=== PATIENT | male | born 1965 | race Caucasian/White ===

== ENCOUNTER 2022-09-27 11:05 | Inpatient (IN) ==
--- NOTE | 2022-09-27 11:58 | XRay Report ---
XR chest 1V portable CLINICAL HISTORY: Chest pain, nonspecific COMPARISON STUDY: Chest radiograph July 09, 2017. FINDINGS: Lung volumes are normal. Lungs are clear. There is no pneumothorax or pleural effusion. Mil d enlargement of the cardiac silhouette. Mediastinal contours are normal. There is no evidence for pu lmonary edema. IMPRESSION: No acute cardiopulmonary findings. ACT 112: Negative or not required by law. Electronically signed by: Tirso So M.D. 09/27/2022 11:57 AM
[2022-09-27] MEDS ORDERED: SODIUM CHLORIDE 0.9% 1000ML 1,000 ML IV ONE (12:01)
--- NOTE | 2022-09-27 12:05 | Emergency Department Note ---
Impression & Plan Saddle pulmonary embolus, Leukocytosis ED Provider Note NAME: ANAM PALOMINO AGE: 57 SEX: M : 1965 ARRIVES VIA: Walk-In INFORMANT: Patient ED PROVIDER(S): Daryl Wharton DO CHIEF COMPLAINT: chest pain and shortness of breath HPI: Patient is a 57-year-old male who presents to the ER for right leg pain as well as shortness of breath and chest pain which has been present for the past 3 days. He notes chest pain and shortness of breath are worse with exertion. Describes as a midsternal chest pain/sharp stabbing pain. Associated with shortness of breath with anything he does. Denies any belly pain, nausea, vomiting, or diarrhea. Did have surgery several weeks ago on his left biceps. Denies any dysuria, urgency, or frequency. No other exacerbating or remitting factors. Does have a previous history of superficial thrombophlebitis. No previous DVTs. No blood thinners PAST MEDICAL HISTORY:See Below PAST SURGICAL HISTORY:See Below FAMILY HISTORY:See Below SOCIAL HISTORY:See Below HOME MEDICATIONS:See Below ALLERGIES:See Below VITALS:See Below PHYSICAL EXAMINATION: GENERAL: Sitting up in bed, alert, well appearing, well nourished, no distress, non-toxic EYE EXAM: normal conjunctiva. OROPHARYNX: mucous membranes are moist LUNGS: Clear to auscultation. Normal chest wall mechanics HEART: no murmurs, S1 normal and S2 normal ABDOMEN: abdomen soft, non-tender, normo-active bowel sounds, no masses, no rebound or guarding. UPPER EXTREMITIES: upper extremities are grossly normal. LOWER EXTREMITIES: Right calf is larger than left calf NEURO EXAM: Normal sensorium, cranial nerves II-XII grossly intact, normal speech, no gross weakness of arms, no gross weakness of legs. MEDICAL DECISION MAKING: Patient is a 66-year-old male who presents ER for above-stated complaint. IV was established blood work was obtained. External records were reviewed. Labs show mild leukocytosis of 12,000. With the swelling of the leg as well as the chest pain shortness of breath patient was taking to CT. D-dimer was elevated 17,000. INR unremarkable. BMP along with LFTs bilirubin was unremarkable. Troponin was mildly elevated at 106. Lipase was normal. COVID was negative. Venous Doppler showed extensive DVT. CTA of the chest shows saddle PE. I rev iewed these images prior to radiology's capitation and call the human resources intern and get the patient heparin drip and bolus. Did discuss with Dr. Kishor Monte as well. We will hold on tPA. Patient was updated at bedside. Triage Nursing notes reviewed. Limited review of prior medical records performed Vital Signs: reviewed and remarkable for no significant abnormalities Differential diagnosis: Cardiac ischemia, aortic dissection, pulmonary embolism, pneumothorax, pneumonia, pericarditis, myocarditis, esophageal rupture, GERD, cholecystitis, pancreatitis, musculoskeletal, as well as other pathologies. ER treatment provided: See below Diagnostics interpreted by me include EKG and cardiac monitoring as listed below: -Cardiac Monitoring: An order was placed for continuous cardiac monitoring. The monitor shows a rate of 90 with sinus rhythm. -ECG: none -Laboratory studies:Interpreted by me as stated above in MDM and shown below. Imaging studies: Xrays: As interpreted by me: Portable AP upright view of the chest shows no focal infiltrate CTs show: CT angio of the chest per my read shows saddle PE Consultation(s): Discussed with human resources intern and hospitalist as described above Procedures:none Critical Care: I have personally spent 32 minutes of critical care time in the direct management of this patient. This includes bedside care, interpretation of diagnostic studies, and testing, discussion with consultants, patient, and family members, and other required patient management activities. This 32 minutes is in excess of all separately billable procedures. Past Med/Surg History Medical History Asthma mild, rarely uses inhaler Hx of blood clots superficial - right calf- ~ 1 yr ago Hypertension Idiopathic polyneuropathy Low back pain ZACKARY (obstructive sleep apnea) no device Surgical History History of esophagogastroduodenoscopy (EGD) Hx of arthroscopy of shoulder right Hx of colonoscopy Hx of wisdom tooth extraction Previous back surgery L4-L5 2009 Family History Mother Diabetes Grandfather (Paternal) Lung cancer Father Pancreatic cancer Sister Clotting disorder Brother Clotting disorder Social History Smoking Status: Former smoker Tobacco Type: Cigarettes packs per day: 1; Cigarettes Per Day: quit ~ 8 yrs ago; Second Hand Exposure: No; Do You Dip or Chew Tobacco: Yes (advised); Hx Alcohol Use: Yes Alcohol type: beer Hx Substance Use: No Preferred Language: Romansh Communication Ability: Effective Secretary [employer] Required: No Beliefs That Will Affect Care: None marital status: Current Living Situation: Spouse Feels Safe at Home: Yes during the past year weight has: remained stable Assistive Devices: Glasses Allergies Allergies Allergy/AdvReac Type Severity Reaction Status Date / Time clams Allergy Severe Vomiting Verified 09/27/22 14:33 Home Meds Home Medications Medication Instructions Recorded Confirmed albuterol sulfate 90 mcg/actuation 2 puff inhalation Q6H PRN 06/27/21 09/27/22 aerosol inhaler (Ventolin HFA) Shortness Of Breath Or Wheezing azelastine 137 mcg (0.1 %) nasal 2 spray intranasal BID PRN Allergy 06/27/21 09/27/22 spray aerosol Symptoms gabapentin 100 mg capsule 100 mg PO DAILY PRN Pain 06/27/21 09/27/22 lisinopril 20 mg tablet 20 mg PO DAILY 06/27/21 09/27/22 fluticasone propionate 50 1 spray intranasal BID PRN Allergy 08/08/22 09/27/22 mcg/actuation nasal Symptoms spray,suspension hydrochlorothiazide 25 mg tablet 25 mg PO QAM 08/08/22 09/27/22 multivitamin 1 tab PO QAM 08/08/22 09/27/22 Results & Data (ED) Vital Signs Vital Signs - 24 hr 09/27/22 11:25 09/27/22 11:51 09/27/22 12:24 Temperature 36.6 C Temperature Source Temporal Artery Scan Pulse Rate 95 H 84 Pulse Rate from SpO2 Sensor Respiratory Rate 24 Respiratory Effort / Characteristics Non-Labored Respiratory Depth Normal Respiratory Pattern Tachypnea Blood Pressure 130/79 Blood Pressure Mean 96 Blood Pressure Position Sitting Pulse Oximetry 100 100 Oxygen Delivery Method Room Air Room Air Sepsis Recent Fever Within 48 Hours No Sepsis New/Unexplained Change in Mental Status N/A Sepsis Action Taken by Nursing No Action Required 09/27/22 12:23 09/27/22 12:30 09/27/22 13:00 Temperature Temperature Source Pulse Rate 83 86 Pulse Rate from SpO2 Sensor 84 86 Respiratory Rate 16 14 Respiratory Effort / Characteristics Respiratory Depth Respiratory Pattern Blood Pressure 134/91 Blood Pressure Mean 105 Blood Pressure Position Pulse Oximetry 99 93 Oxygen Delivery Method Sepsis Recent Fever Within 48 Hours Sepsis New/Unexplained Change in Mental Status Sepsis Action Taken by Nursing 09/27/22 13:00 09/27/22 13:30 Temperature Temperature Source Pulse Rate 85 87 Pulse Rate from SpO2 Sensor 91 H Respiratory Rate 20 16 Respiratory Effort / Characteristics Respiratory Depth Respiratory Pattern Blood Pressure Blood Pressure Mean Blood Pressure Position Pulse Oximetry 99 Oxygen Delivery Method Sepsis Recent Fever Within 48 Hours Sepsis New/Unexplained Change in Mental Status Sepsis Action Taken by Nursing Laboratory Data 09/27/22 11:40 Lab Results 09/27/22 09/27/22 09/27/22 Range/Units 11:40 11:40 11:40 WBC 12.27 H (4.8-10.8) K/ul RBC 4.60 L (4.70-6.10) M/uL Hgb 14.7 (14.0-18.0) g/dl Hct 42.3 (42.0-52.0) % MCV 92.0 (80.0-100.0) fL MCH 32.0 (25.0-34.0) pg MCHC 34.8 (32.0-36.0) g/dL RDW Std Deviation 42.4 (36.4-46.3) fL RDW Coeff of Katharina 12.6 (11.5-14.5) % Plt Count 279 (130-400) K/uL MPV 9.6 (9.4-12.4) fL Immature Gran % (Auto) 0.5 % Neut % (Auto) 67.4 % Lymph % (Auto) 20.7 % [place] % (Auto) 9.1 % Eos % (Auto) 1.6 % Baso % (Auto) 0.7 % Neut # (Auto) 8.27 H (1.40-6.50) K/uL Lymph # (Auto) 2.54 (1.2-3.4) K/uL [place] # (Auto) 1.12 H (0.11-0.59) K/uL Eos # (Auto) 0.20 (0-0.50) K/uL Baso # (Auto) 0.08 (0-0.2) K/uL Immature Gran # (Auto) 0.06 (0.01-0.20) K/uL PT (9.0-12.0) Seconds INR (0.9-1.1) APTT (21.0-31.0) Seconds PTT Ratio D-Dimer 70195 H* (0-500) ug/L FEU Sodium 137 (136-145) mmol/L Potassium 3.9 (3.5-5.1) mmol/L Chloride 102 (98-107) mmol/L Carbon Dioxide 23 (21-32) mmol/L Anion Gap 12 H (3-11) BUN 16 (6-23) mg/dl Creatinine 0.95 (0.6-1.4) mg/dl Est Cr Clr Drug Dosing 123.1 ml/min Est GFR ( Amer) 103.3 ml/min Est GFR (Non-Af Amer) 89.1 ml/min BUN/Creatinine Ratio 16.8 (10-20) Glucose 97 (70-99(Fasting)) mg/dl Calcium 9.7 (8.6-10.3) mg/dl Total Bilirubin 1.2 H (0.2-1.0) mg/dl AST 32 (13-39) U/L ALT 37 (7-52) U/L Alkaline Phosphatase 101 (34-104) U/L Troponin I High Sens 106.6 H* (0-20) pg/ml Total Protein 7.9 (6.0-8.3) gm/dl Albumin 4.4 (3.4-5.0) gm/dl Globulin 3.5 (2.5-4.0) gm/dl Albumin/Globulin Ratio 1.3 (0.9-2) Lipase 20 (11-82) U/L 09/27/22 Range/Units 13:06 WBC (4.8-10.8) K/ul RBC (4.70-6.10) M/uL Hgb (14.0-18.0) g/dl Hct (42.0-52.0) % MCV (80.0-100.0) fL MCH (25.0-34.0) pg MCHC (32.0-36.0) g/dL RDW Std Deviation (36.4-46.3) fL RDW Coeff of Katharina (11.5-14.5) % Plt Count (130-400) K/uL MPV (9.4-12.4) fL Immature Gran % (Auto) % Neut % (Auto) % Lymph % (Auto) % [place] % (Auto) % Eos % (Auto) % Baso % (Auto) % Neut # (Auto) (1.40-6.50) K/uL Lymph # (Auto) (1.2-3.4) K/uL [place] # (Auto) (0.11-0.59) K/uL Eos # (Auto) (0-0.50) K/uL Baso # (Auto) (0-0.2) K/uL Immature Gran # (Auto) (0.01-0.20) K/uL PT 12.1 H (9.0-12.0) Seconds INR 1.1 (0.9-1.1) APTT 24.7 (21.0-31.0) Seconds PTT Ratio 0.9 D-Dimer (0-500) ug/L FEU Sodium (136-145) mmol/L Potassium (3.5-5.1) mmol/L Chloride (98-107) mmol/L Carbon Dioxide (21-32) mmol/L Anion Gap (3-11) BUN (6-23) mg/dl Creatinine (0.6-1.4) mg/dl Est Cr Clr Drug Dosing ml/min Est GFR ( Amer) ml/min Est GFR (Non-Af Amer) ml/min BUN/Creatinine Ratio (10-20) Glucose (70-99(Fasting)) mg/dl Calcium (8.6-10.3) mg/dl Total Bilirubin (0.2-1.0) mg/dl AST (13-39) U/L ALT (7-52) U/L Alkaline Phosphatase (34-104) U/L Troponin I High Sens (0-20) pg/ml Total Protein (6.0-8.3) gm/dl Albumin (3.4-5.0) gm/dl Globulin (2.5-4.0) gm/dl Albumin/Globulin Ratio (0.9-2) Lipase (11-82) U/L Administered Medications Heparin Sodium/Dextrose (Heparin Sodium/Dextrose) 25,000 units in 500 mls @ 36 mls/hr IV .[id number] [facility]; Protocol Stop: 10/27/22 13:14 Last Admin: 09/27/22 13:08 Dose: 1,800 units/hr, 36 mls/hr Documented By: FRANKY Co-signed By: AMEE Discontinued Medications Heparin Sodium (Porcine) (Heparin Sod (Porcine) 1000 Unit/Ml) 8,000 units IV NOW ONE Stop: 09/27/22 13:10 Last Admin: 09/27/22 13:08 Dose: 6,000 units Documented By: FRANKY Co-signed By: AMEE Ioversol (Optiray 320 500ml) 120 ml IV ONCE ONE Stop: 09/27/22 12:49 Last Admin: 09/27/22 12:49 Dose: 120 ml Documented By: KUSHAL Imaging Data Radiologist's Impression: Chest X-Ray 09/27/22 11:33 XR chest 1V portable CLINICAL HISTORY: Chest pain, nonspecific COMPARISON STUDY: Chest radiograph July 09, 2017. FINDINGS: Lung volumes are normal. Lungs are clear. There is no pneumothorax or pleural effusion. Mild enlargement of the cardiac silhouette. Mediastinal contours are normal. There is no evidence for pulmonary edema. IMPRESSION: No acute cardiopulmonary findings. ACT 112: Negative or not required by law. Electronically signed by: Tirso So M.D. 09/27/2022 11:57 AM Chest CTA 09/27/22 12:01 CT ANGIOGRAM OF THE CHEST CLINICAL HISTORY: Atypical chest pain. COMPARISON STUDY: Chest x-ray dated 09/27/2022. TECHNIQUE: Following the IV administration of 120 cc of Optiray 320, CT angiogram of the chest was performed from the upper abdomen to the thoracic inlet utilizing the pulmonary embolus protocol. Images are reviewed in the axial, sagittal, and coronal planes. 3-D MIPS images are created and assessed. IV contrast was administered without complication. A dose lowering technique was utilized adhering to the principles of ALARA. The examination is degraded by streak artifact from the left arm which could not be elevated above the chest. CT DOSE: 566.96 mGycm FINDINGS: Thyroid: Imaged portions of the thyroid gland are normal in size and a ttenuation. Thoracic aorta: There is moderate atherosclerotic calcification of the thoracic aorta, which is normal in caliber and demonstrates standard 3-vessel arch anatomy. No dissection is seen. Pulmonary vasculature: The pulmonary trunk is normal in caliber. There is extensive bilateral pulmonary embolus. There is a saddle pulmonary embolus, with thrombus within the distal right and left main pulmonary arteries. Thrombus extends into the left upper lobe, left lower lobe, and lingular pulmonary arteries into segmental and subsegmental branches. Thrombus extends into the right upper and right lower lobe pulmonary arteries into segmental and subsegmental branches. There is also segmental and subsegmental thrombus within the right middle lobe pulmonary artery. Heart: The heart is normal in size and without pericardial effusion. There are coronary artery calcifications. Lungs and pleural spaces: There is no airspace consolidation or pleural effusion. Scattered foci of parenchymal scarring are seen throughout both lungs. The trachea and central airways are clear. Mediastinum: Mildly enlarged mediastinal lymph nodes measure up to 12 mm in short axis. Shantal: Clear. Axillae: There is no axillary lymphadenopathy. Upper abdomen: Partially visualized upper abdominal viscera is within normal limits. Skeletal structures: No lytic or blastic bony lesions are seen. Postsurgical changes noted in the left shoulder. IMPRESSION: 1. Saddle pulmonary embolus with extensive bilateral pulmonary emboli as above. 2. The lungs are clear. 3. Additional findings as above. ACT 112: Negative or not required by law. Electronically signed by: Mode Diaz M.D. 09/27/2022 1:10 PM Venous Doppler Study 09/27/22 12:01 RIGHT LOWER EXTREMITY VENOUS DOPPLER CLINICAL HISTORY: ? dvt. Pulmonary emboli. COMPARISON STUDY: No previous studies for comparison. TECHNIQUE: Sonography of the deep venous system of the right lower extremity was performed. Compression and augmentation were evaluated. FINDINGS: Note is made of deep venous thrombus within the right femoral, popliteal, posterior tibial and peroneal veins. This thrombus is acute appearing. There is also superficial thrombus within a superficial varicosity. IMPRESSION: Deep venous thrombus within the right lower extremity, as described above. ACT 112: Negative or not required by law. Electronically signed by: Tirso So M.D. 09/27/2022 1:52 PM Discharge Plan Visit Data Chief Complaint: Referred by Doctor Stated Complaint: POSSIBLE BLOOD CLOTS IN CHEST AND LEGS ED Provider: Daryl Wharton Discharge Problem: Saddle pulmonary embolus, Leukocytosis Patient Disposition: Admitted As Inpatient Discharge Instructions Interventions: ED Discharge Assessment Last Done: 09/27/22 15:15
[2022-09-27 12:14] LABS: Basophils # (auto) 0.08 K/uL (0-0.2); Basophils % (auto) 0.7 %; Eosinophils % (auto) 1.6 %; Hematocrit (blood only) 42.3 % (42.0-52.0); Hemoglobin 14.7 g/dl (14.0-18.0); Immature Granulocytes # (auto) 0.06 K/uL (0.01-0.20); Immature Granulocytes % (auto) 0.5 %; Lymphocytes # (auto) 2.54 K/uL (1.2-3.4); Lymphocytes % (auto) 20.7 %; Mean Corpuscular Hgb Conc 34.8 g/dL (32.0-36.0); Mean Platelet Volume 9.6 fL (9.4-12.4); Monocytes # (auto) 1.12 K/uL (0.11-0.59); Monocytes % (auto) 9.1 %; Neutrophils # (auto) 8.27 K/uL (1.40-6.50); Neutrophils % (auto) 67.4 %; Platelet Count 279 K/uL (130-400); RDW Coefficient of Variation 12.6 % (11.5-14.5); RDW Standard Deviation 42.4 fL (36.4-46.3); White Blood Count 12.27 K/ul (4.8-10.8)
[2022-09-27 12:31] LABS: Albumin Globulin Ratio 1.3 (0.9-2); Albumin Level 4.4 gm/dl (3.4-5.0); BUN Creatinine Ratio 16.8 (10-20); Bilirubin,Total 1.2 mg/dl (0.2-1.0); Calcium 9.7 mg/dl (8.6-10.3); Creatinine Clr Calc Pharmacy 123.1 ml/min; Est GFR (African American) 103.3 ml/min; Est GFR (Non-African American) 89.1 ml/min; Globulin 3.5 gm/dl (2.5-4.0); Potassium 3.9 mmol/L (3.5-5.1); Total Protein 7.9 gm/dl (6.0-8.3)
[2022-09-27 12:48] LABS: Troponin I High Sensitivity 106.6 pg/ml (0-20)
[2022-09-27] MEDS ORDERED: OPTIRAY 320 500ml IV ONE (12:48)
[2022-09-27] MEDS ORDERED: Heparin IV Adult Wt-Based Standard WITH Bolus Protocol IV STA (12:54)
[2022-09-27] MEDS: HEPARIN SODIUM/DEXTROSE 25,000 UNITS/500 ML BAG IV SCH (13:08)
[2022-09-27] MEDS ORDERED: HEPARIN SOD (PORCINE) 1000 UNIT/ML IV ONE ×2 (13:09)
--- NOTE | 2022-09-27 13:11 | CT Scan Report ---
CT ANGIOGRAM OF THE CHEST CLINICAL HISTORY: Atypical chest pain. COMPARISON STUDY: Chest x-ray dated 09/27/2022. TECHNIQUE: Following the IV administration of 120 cc of Optiray 320, CT angiogram of the chest was pe rformed from the upper abdomen to the thoracic inlet utilizing the pulmonary embolus protocol. Images are reviewed in the axial, sagittal, and coronal planes. 3-D MIPS images are created and assessed. I V contrast was administered without complication. A dose lowering technique was utilized adhering to the principles of ALARA. The examination is degraded by streak artifact from the left arm which coul d not be elevated above the chest. CT DOSE: 566.96 mGycm FINDINGS: Thyroid: Imaged portions of the thyroid gland are normal in size and attenuation. Thoracic aorta: There is moderate atherosclerotic calcification of the thoracic aorta, which is mario alberto l in caliber and demonstrates standard 3-vessel arch anatomy. No dissection is seen. Pulmonary vasculature: The pulmonary trunk is normal in caliber. There is extensive bilateral pulmona ry embolus. There is a saddle pulmonary embolus, with thrombus within the distal right and left main pulmonary arteries. Thrombus extends into the left upper lobe, left lower lobe, and lingular pulmonar y arteries into segmental and subsegmental branches. Thrombus extends into the right upper and right lower lobe pulmonary arteries into segmental and subsegmental branches. There is also segmental and s ubsegmental thrombus within the right middle lobe pulmonary artery. Heart: The heart is normal in size and without pericardial effusion. There are coronary artery calcif ications. Lungs and pleural spaces: There is no airspace consolidation or pleural effusion. Scattered foci of p arenchymal scarring are seen throughout both lungs. The trachea and central airways are clear. Mediastinum: Mildly enlarged mediastinal lymph nodes measure up to 12 mm in short axis. Shantal: Clear. Axillae: There is no axillary lymphadenopathy. Upper abdomen: Partially visualized upper abdominal viscera is within normal limits. Skeletal structures: No lytic or blastic bony lesions are seen. Postsurgical changes noted in the lef t shoulder. IMPRESSION: 1. Saddle pulmonary embolus with extensive bilateral pulmonary emboli as above. 2. The lungs are clear. 3. Additional findings as above. ACT 112: Negative or not required by law. Electronically signed by: Mode Diaz M.D. 09/27/2022 1:10 PM
--- NOTE | 2022-09-27 13:22 | History & Physical Report ---
Date of Service September 27, 2022 Assessment & Plan (1) Saddle pulmonary embolus: Plan: Discussed with stamping press operator and currently since the patient is hemodynamically stable without end organ symptoms will just treat with heparin IV already started in the ER. PESI score 66 - low risk Bed rest US right lower extremity TTE Would consider lifelong treatment given prothrombin gene mutation and strong family history (2) ZACKARY (obstructive sleep apnea): Plan: Has not worn CPAP for 2 years due to his machine being broken. CPAP HS. Hold if hypotensive. (3) Hypertension: Plan: Hold HCTZ and lisinopril depending on hemodynamic stability (4) Idiopathic polyneuropathy: Plan: Continue gabapentin PRN Plan VTE Prophylaxis - IV heparin Diet - regular Disposition - admit to PCU Admission and Anticipated Discharge Date Admission Date: September 27, 2022 History of Present Illness Chief Complaint: Shortness of breath, right leg pain Primary Care Provider: Karina Nascimento MD Anam Schultz is a 57 year old male who presents to the ER with right leg pain and shortness of breath. He reports initial symptoms of chest tightness of exertion with shortness of breath on exertion started on Sunday (3 days previously). The following day he started having right thigh and calf pain. In the ER he underwent CT for PE showing a saddle embolus. He recently underwent left shoulder arthroplasty on August 14 with post operative course of aspirin for VTE prophylaxis. No recent long haul car/plane journeys. He reports have a superficial right lower extremity thrombus treated with conservative measures approximately 2 years ago. 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 No previous personal deep vein thrombosis. Allergies Allergy/AdvReac Type Severity Reaction Status Date / Time clams Allergy Severe Vomiting Verified 09/27/22 14:33 Home Medications Medication Instructions Recorded Confirmed Type albuterol sulfate 90 mcg/actuation 2 puff inhalation Q6H PRN 06/27/21 09/27/22 History aerosol inhaler (Ventolin HFA) Shortness Of Breath Or Wheezing azelastine 137 mcg (0.1 %) nasal 2 spray intranasal BID PRN Allergy 06/27/21 09/27/22 History spray aerosol Symptoms gabapentin 100 mg capsule 100 mg PO DAILY PRN Pain 06/27/21 09/27/22 History lisinopril 20 mg tablet 20 mg PO DAILY 06/27/21 09/27/22 History fluticasone propionate 50 1 spray intranasal BID PRN Allergy 08/08/22 09/27/22 History mcg/actuation nasal Symptoms spray,suspension hydrochlorothiazide 25 mg tablet 25 mg PO QAM 08/08/22 09/27/22 History multivitamin 1 tab PO QAM 08/08/22 09/27/22 History Past Med/Surg History Medical History (Updated 09/27/22 @ 22:58 by Kishor Monte MD) Asthma mild, rarely uses inhaler Hx of blood clots superficial - right calf- ~ 1 yr ago Hypertension Idiopathic polyneuropathy Low back pain ZACKARY (obstructive sleep apnea) no device 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 Surgical History History of esophagogastroduodenoscopy (EGD) Hx of arthroscopy of shoulder right Hx of colonoscopy Hx of wisdom tooth extraction Previous back surgery L4-L5 2009 Family History Mother Diabetes Grandfather (Paternal) Lung cancer Father Pancreatic cancer Sister Clotting disorder Brother Clotting disorder Social History Smoking Status: Former smoker Tobacco Type: Cigarettes packs per day: 1; Cigarettes Per Day: quit ~ 8 yrs ago; Second Hand Exposure: No; Do You Dip or Chew Tobacco: Yes (advised); Hx Alcohol Use: Yes Alcohol type: beer Hx Substance Use: No Preferred Language: Dominican Communication Ability: Effective Tool Coordinator Required: No Beliefs That Will Affect Care: None marital status: Current Living Situation: Spouse Feels Safe at Home: Yes during the past year weight has: remained stable Assistive Devices: Glasses Review of Systems Review of Systems: All systems reviewed & are unremarkable except as noted in HPI & below Physical Exam Constitutional: WD/WN, vitals as above Eyes: + anicteric sclerae; normal pupil size ENMT: external ear and nose normal, oropharynx normal Neck: trachea midline, no thyromegaly Respiratory: normal respiratory effort; no respiratory distress Auscultation: lungs clear to auscultation bilaterally; breath sounds present, no diminished lung sounds, no crackles and no rales Cardiovascular: RRR, no murmur, no edema Extremities: normal capillary refill and + calf tenderness (right); no pedal edema Gastrointestinal (Abdomen): normal bowel sounds, soft, nontender, no hepatosplenomegaly Musculoskeletal: no cyanosis or clubbing, extremities motor strength 5/5 Skin: no rashes, warm and dry Neurologic: moves all extremities and awake; not confused Psychiatric: A+Ox3, euthymic affect Results & Data Results & Data Vital Signs (Past 12 Hours) Vital Signs Temp Pulse Resp BP Pulse Ox O2 Del Method 09/27/22 12:24 84 09/27/22 11:51 100 Room Air 09/27/22 11:25 36.6 C 95 H 24 130/79 100 Room Air Laboratory Results Abnormal lab results 09/27/22 09/27/22 09/27/22 Range/Units 11:40 11:40 11:40 WBC 12.27 H (4.8-10.8) K/ul RBC 4.60 L (4.70-6.10) M/uL Neut # (Auto) 8.27 H (1.40-6.50) K/uL Tillman # (Auto) 1.12 H (0.11-0.59) K/uL D-Dimer 07042 H* (0-500) ug/L FEU Anion Gap 12 H (3-11) Total Bilirubin 1.2 H (0.2-1.0) mg/dl Troponin I High Sens 106.6 H* (0-20) pg/ml Diagnostic Findings XR chest 1V portable CLINICAL HISTORY: Chest pain, nonspecific COMPARISON STUDY: Chest radiograph July 09, 2017. FINDINGS: Lung volumes are normal. Lungs are clear. There is no pneumothorax or pleural effusion. Mild enlargement of the cardiac silhouette. Mediastinal contours are normal. There is no evidence for pulmonary edema. IMPRESSION: No acute cardiopulmonary findings. CT ANGIOGRAM OF THE CHEST CLINICAL HISTORY: Atypical chest pain. COMPARISON STUDY: Chest x-ray dated 09/27/2022. TECHNIQUE: Following the IV administration of 120 cc of Optiray 320, CT angiogram of the chest was performed from the upper abdomen to the thoracic inlet utilizing the pulmonary embolus protocol. Images are reviewed in the axial, sagittal, and coronal planes. 3-D MIPS images are created and assessed. IV contrast was administered without complication. A dose lowering technique was utilized adhering to the principles of ALARA. The examination is degraded by streak artifact from the left arm which could not be elevated above the chest. CT DOSE: 566.96 mGycm FINDINGS: Thyroid: Imaged portions of the thyroid gland are normal in size and attenuation. Thoracic aorta: There is moderate atherosclerotic calcification of the thoracic aorta, which is normal in caliber and demonstrates standard 3-vessel arch anatomy. No dissection is seen. Pulmonary vasculature: The pulmonary trunk is normal in caliber. There is extensive bilateral pulmonary embolus. There is a saddle pulmonary embolus, with thrombus within the distal right and left main pulmonary arteries. Thrombus extends into the left upper lobe, left lower lobe, and lingular pulmonary arteries into segmental and subsegmental branches. Thrombus extends into the right upper and right lower lobe pulmonary arteries into segmental and subsegmental branches. There is also segmental and subsegmental thrombus within the right middle lobe pulmonary artery. Heart: The heart is normal in size and without pericardial effusion. There are coronary artery calcifications. Lungs and pleural spaces: There is no airspace consolidation or pleural effusion. Scattered foci of parenchymal scarring are seen throughout both lungs. The trachea and central airways are clear. Mediastinum: Mildly enlarged mediastinal lymph nodes measure up to 12 mm in short axis. Shantal: Clear. Axillae: There is no axillary lymphadenopathy. Upper abdomen: Partially visualized upper abdominal viscera is within normal limits. Skeletal structures: No lytic or blastic bony lesions are seen. Postsurgical changes noted in the left shoulder. IMPRESSION: 1. Saddle pulmonary embolus with extensive bilateral pulmonary emboli as above. 2. The lungs are clear. 3. Additional findings as above. Medications Administered ER Medications Given: Heparin standard IV dose with bolus ECG Rate (beats per minute): 88 Rhythm: normal sinus Findings: + nonspecific-ST abn Comparison ECG Date: from (August 04, 2022) Change: no significant change Code Status & VTE Plan Code Status Full VTE Prophylaxis Plan VTE Prophylaxis will be ordered: Yes PG Care Time/CCT Total # of Minutes Spent Total Time Spent with Patient: Total time spent is greater than 50% in coordination of care (as documented) at patient's floor/unit and/or counseling patient: Coding Level of Care Code 99593 INT INP/OBS CARE 3/75MIN Diagnoses Saddle pulmonary embolus I26.92 ZACKARY (obstructive sleep apnea) G47.33 Hypertension I10 Idiopathic polyneuropathy G60.9
[2022-09-27 13:28] LABS: D Dimer 16930 ug/L FEU (0-500)
--- NOTE | 2022-09-27 13:47 | Critical Care Consultation ---
Date of Consultation September 27, 2022 Assessment & Plan (1) Saddle pulmonary embolus: Reason Critically Ill: 57-year-old male with newly diagnosed saddle pulmonary embolism PLAN: Neuro: Idiopathic polyneuropathy by EMG 05/25/2021 Resp: Pulmonary embolism without cor pulmonale -I suspect the pulmonary embolism has been gradually building, there is no signs of extremis, his PESI score is 66, class II low risk. I believe risks of thrombolytics outweigh benefits. His troponins are very mildly eleva claudia. With such clot burden if this was very abrupt onset I do not believe his heart would be able to accommodate the VQ mismatch and change in hemodynamics. Therefore I also think thrombolytics will be less effective at decreasing colonic clot burden which is body already appears to be tolerating and accommodating. CV: Elevated troponin secondary to pulmonary embolism Hypertension -Patient reports he did take his antihypertensives today and his blood pressure is good, no indication of relative hypotension and history of essential hypertension Heme: Prothrombin gene mutation -Will require course of anticoagulants, we briefly discussed possible need for lifelong anticoagulation DVT prophylaxis: Heparin infusion Vascular access: Peripheral IVs Code Status: Full code Disposition: PCU with hospitalist medicine (2) Prothrombin [id number] mutation: (3) ZACKARY (obstructive sleep apnea): (4) Idiopathic polyneuropathy: (5) Hypertension: Supervising Physician Co-Signing Physician Notes I have personally spent 65 minutes of critical care time in the direct management of this patient. This includes time spent evaluating patient, direct bedside discussion/consultation, chart review, interpretation of diagnostic studies, discussion with consultants, patient, and regarding treatment decisions, as well as other required patient management activities. History of Present Illness Reason for Consultation: Saddle pulmonary embolus Requesting Physician: Kishor Monte MD Attending Physician: Kishor Monte MD History of Present Illness Patient is a 57-year-old male who is 6 weeks out from a shoulder arthroscopic surgery who has a known prothrombin mutation who completed his post surgical DVT prophylaxis who presented to the emergency department today for right leg pain as well as some chest pain for the last 3 days. He does admit to shortness of breath with exertion. He does not have a prior history of DVT nor PE, he reports he has had superficial thrombophlebitis in the past. He has a known prothrombin mutation secondary to a brother and sister both been diagnosed with pulmonary embolism and subsequently discovered their prothrombin mutations so the patient was evaluated as an outpatient. Been asked to weigh in regarding clot burden and need for thrombolytics. Allergies Allergy/AdvReac Type Severity Reaction Status Date / Time clams Allergy Severe Vomiting Verified 09/27/22 14:33 Home Medications Medication Instructions Recorded Confirmed Type albuterol sulfate 90 mcg/actuation 2 puff inhalation Q6H PRN 06/27/21 08/14/22 History aerosol inhaler (Ventolin HFA) Shortness Of Breath Or Wheezing azelastine 137 mcg (0.1 %) nasal 2 spray intranasal BID PRN Allergy 06/27/21 08/14/22 History spray aerosol Symptoms gabapentin 100 mg capsule 100 mg PO DAILY PRN Pain 06/27/21 08/14/22 History lisinopril 20 mg tablet 20 mg PO DAILY 06/27/21 08/14/22 History fluticasone propionate 50 1 spray intranasal BID PRN Allergy 08/08/22 08/14/22 History mcg/actuation nasal Symptoms spray,suspension hydrochlorothiazide 25 mg tablet 25 mg PO QAM 08/08/22 08/14/22 History multivitamin 1 tab PO QAM 08/08/22 08/14/22 History Patient History Medical History Asthma mild, rarely uses inhaler Hx of blood clots superficial - right calf- ~ 1 yr ago Hypertension Idiopathic polyneuropathy Low back pain ZACKARY (obstructive sleep apnea) no device Surgical History History of esophagogastroduodenoscopy (EGD) Hx of arthroscopy of shoulder right Hx of colonoscopy Hx of wisdom tooth extraction Previous back surgery L4-L5 2009 Family History Mother Diabetes Grandfather (Paternal) Lung cancer Father Pancreatic cancer Sister Clotting disorder Brother Clotting disorder Social History Smoking Status: Former smoker Tobacco Type: Cigarettes packs per day: 1; Cigarettes Per Day: quit ~ 8 yrs ago; Second Hand Exposure: No; Do You Dip or Chew Tobacco: Yes (advised); Hx Alcohol Use: Yes Alcohol type: beer Hx Substance Use: No Preferred Language: Moroccan Communication Ability: Effective Housecalls Nurse Required: No Beliefs That Will Affect Care: None marital status: Current Living Situation: Spouse Feels Safe at Home: Yes during the past year weight has: remained stable Assistive Devices: Glasses Review of Systems Review of Systems: As per the HPI All other review of systems are otherwise negative Physical Exam Physical Exam: General: Alert. nontoxic. Skin: Warm, dry, Head: Atraumatic Ears, nose, mouth and throat: airway patent Cardiovascular: Normal peripheral perfusion Respiratory: no respiratory distress Gastrointestinal: Non distended Musculoskeletal: No deformity Results & Data Results & Data Vital Signs (Past 12 Hours) Vital Signs Temp Pulse Resp BP Pulse Ox O2 Del Method 09/27/22 12:24 84 09/27/22 11:51 100 Room Air 09/27/22 11:25 36.6 C 95 H 24 130/79 100 Room Air Critical Care Results & Data Vital Signs (Past 12 Hours) Vital Signs Temp Pulse Resp BP Pulse Ox O2 Del Method 09/27/22 13:30 87 16 09/27/22 13:00 85 20 99 09/27/22 13:00 134/91 09/27/22 12:30 86 14 93 09/27/22 12:23 83 16 99 09/27/22 12:24 84 09/27/22 11:51 100 Room Air 09/27/22 11:25 36.6 C 95 H 24 130/79 100 Room Air Lab & Micro Results (Past 24 Hours) RBC 4.60 M/uL (4.70-6.10) L 09/27/22 WBC 12.27 K/ul (4.8-10.8) H 09/27/22 Hgb 14.7 g/dl (14.0-18.0) 09/27/22 Hct 42.3 % (42.0-52.0) 09/27/22 MCV 92.0 fL (80.0-100.0) 09/27/22 MCH 32.0 pg (25.0-34.0) 09/27/22 MCHC 34.8 g/dL (32.0-36.0) 09/27/22 RDW Standard Deviation 42.4 fL (36.4-46.3) 09/27/22 RDW Coefficient of Variation 12.6 % (11.5-14.5) 09/27/22 Plt Count 279 K/uL (130-400) 09/27/22 MPV 9.6 fL (9.4-12.4) 09/27/22 Neutrophils (%) (Auto) 67.4 % 09/27/22 Lymphocytes (%) (Auto) 20.7 % 09/27/22 Monocytes # (Auto) 1.12 K/uL (0.11-0.59) H 09/27/22 Eosinophils # (Auto) 0.20 K/uL (0-0.50) 09/27/22 Immature Granulocyte % (Auto) 0.5 % 09/27/22 Neutrophils # (Auto) 8.27 K/uL (1.40-6.50) H 09/27/22 Lymphocytes # (Auto) 2.54 K/uL (1.2-3.4) 09/27/22 Monocytes # (Auto) 1.12 K/uL (0.11-0.59) H 09/27/22 Eosinophils # (Auto) 0.20 K/uL (0-0.50) 09/27/22 Basophils # (Auto) 0.08 K/uL (0-0.2) 09/27/22 Immature Granulocyte # (Auto) 0.06 K/uL (0.01-0.20) 3 Na 137 mmol/L (136-145) 09/27/22 K 3.9 mmol/L (3.5-5.1) 09/27/22 Cl 102 mmol/L (98-107) 09/27/22 CO2 23 mmol/L (21-32) 09/27/22 Anion Gap 12 (3-11) H 09/27/22 BUN 16 mg/dl (6-23) 09/27/22 Creatinine 0.95 mg/dl (0.6-1.4) 09/27/22 Estimated GFR ( Amer) 103.3 ml/min 09/27/22 Estimated GFR (Non-Af Amer) 89.1 ml/min 09/27/22 BUN/Creatinine Ratio 16.8 (10-20) 09/27/22 Glu 97 mg/dl (70-99(Fasting)) 09/27/22 Ca 9.7 mg/dl (8.6-10.3) 09/27/22 Total Bilirubin 1.2 mg/dl (0.2-1.0) H 09/27/22 AST 32 U/L (13-39) 09/27/22 ALT 37 U/L (7-52) 09/27/22 Alkaline Phosphatase 101 U/L (34-104) 09/27/22 TP 7.9 gm/dl (6.0-8.3) 09/27/22 Albumin 4.4 gm/dl (3.4-5.0) 09/27/22 Globulin 3.5 gm/dl (2.5-4.0) 09/27/22 Albumin/Globulin Ratio 1.3 (0.9-2) 09/27/22 Calcium Level 9.7 mg/dl (8.6-10.3) 09/27/22 11:40 Prothromb Time International Ratio 1.1 (0.9-1.1) 09/27/22 13:0 6 Diagnostic Findings (Past 24 Hours) Chest X-Ray 09/27/22 11:33 XR chest 1V portable CLINICAL HISTORY: Chest pain, nonspecific COMPARISON STUDY: Chest radiograph July 09, 2017. FINDINGS: Lung volumes are normal. Lungs are clear. There is no pneumothorax or pleural effusion. Mild enlargement of the cardiac silhouette. Mediastinal c ontours are normal. There is no evidence for pulmonary edema. IMPRESSION: No acute cardiopulmonary findings. ACT 112: Negative or not required by law. Electronically signed by: Tirso So M.D. 09/27/2022 11:57 AM Chest CTA 09/27/22 12:01 CT ANGIOGRAM OF THE CHEST CLINICAL HISTORY: Atypical chest pain. COMPARISON STUDY: Chest x-ray dated 09/27/2022. TECHNIQUE: Following the IV administration of 120 cc of Optiray 320, CT angiogram of the chest was performed from the upper abdomen to the thoracic inlet utilizing the pulmonary embolus protocol. Images are reviewed in the axial, sagittal, and coronal planes. 3-D MIPS images are created and assessed. IV contrast was administered without complication. A dose lowering technique was utilized adhering to the principles of ALARA. The examination is degraded by streak artifact from the left arm which could not be elevated above the chest. CT DOSE: 566.96 mGycm FINDINGS: Thyroid: Imaged portions of the thyroid gland are normal in size and attenuation. Thoracic aorta: There is moderate atherosclerotic calcification of the thoracic aorta, which is normal in caliber and demonstrates standard 3-vessel arch anatomy. No dissection is seen. Pulmonary vasculature: The pulmonary trunk is normal in caliber. There is extensive bilateral pulmonary embolus. There is a saddle pulmonary embolus, with thrombus within the distal right and left main pulmonary arteries. Thrombus extends into the left upper lobe, left lower lobe, and lingular pulmonary arteries into segmental and subsegmental branches. Thrombus extends into the right upper and right lower lobe pulmonary arteries into segmental and subsegmental branches. There is also segmental and subsegmental thrombus within the right middle lobe pulmonary artery. Heart: The heart is normal in size and without pericardial effusion. There are coronary artery calcifications. Lungs and pleural spaces: There is no airspace consolidation or pleural ef fusion. Scattered foci of parenchymal scarring are seen throughout both lungs. The trachea and central airways are clear. Mediastinum: Mildly enlarged mediastinal lymph nodes measure up to 12 mm in short axis. Shantal: Clear. Axillae: There is no axillary lymphadenopathy. Upper abdomen: Partially visualized upper abdominal viscera is within normal limits. Skeletal structures: No lytic or blastic bony lesions are seen. Postsurgical changes noted in the left shoulder. IMPRESSION: 1. Saddle pulmonary embolus with extensive bilateral pulmonary emboli as above. 2. The lungs are clear. 3. Additional findings as above. ACT 112: Negative or not required by law. Electronically signed by: Mode Diaz M.D. 09/27/2022 1:10 PM Venous Doppler Study 09/27/22 12:01 RIGHT LOWER EXTREMITY VENOUS DOPPLER CLINICAL HISTORY: ? dvt. Pulmonary emboli. COMPARISON STUDY: No previous studies for comparison. TECHNIQUE: Sonography of the deep venous system of the right lower extremity was performed. Compression and augmentation were evaluated. FINDINGS: Note is made of deep venous thrombus within the right femoral, popliteal, posterior tibial and peroneal veins. This thrombus is acute appearing. There is also superficial thrombus within a superficial varicosity. IMPRESSION: Deep venous thrombus within the right lower extremity, as described above. ACT 112: Negative or not required by law. Electronically signed by: Tirso So M.D. 09/27/2022 1:52 PM RT Ventilator Mngmt (Last Documented) Ventilator Ordered Settings Respiratory Rate 16 09/27/22 13:30 Ventilator - PT Measurements Respiratory Rate 16 Coding Level of Care Code 89647 IN/OBS CONSULT LVL 5,80M Diagnoses Saddle pulmonary embolus I26.92 Acute cor pulmonale presence: without acute cor pulmonale Chronicity: unspecified Prothrombin [id number] mutation D68.52 ZACKARY (obstructive sleep apnea) G47.33 Idiopathic polyneuropathy G60.9 Hypertension I10 Time Spent (min) 65 (1) Saddle pulmonary embolus Acute cor pulmonale presence: without acute cor pulmonale Chronicity: unspecified Qualified Code(s): I26.92 - Saddle embolus of pulmonary artery without acute cor pulmonale
--- NOTE | 2022-09-27 13:54 | Ultrasound Report ---
RIGHT LOWER EXTREMITY VENOUS DOPPLER CLINICAL HISTORY: ? dvt. Pulmonary emboli. COMPARISON STUDY: No previous studies for comparison. TECHNIQUE: Sonography of the deep venous system of the right lower extremity was performed. Compress ion and augmentation were evaluated. FINDINGS: Note is made of deep venous thrombus within the right femoral, popliteal, posterior tibial and peroneal veins. This thrombus is acute appearing. There is also superficial thrombus within a vasquez perficial varicosity. IMPRESSION: Deep venous thrombus within the right lower extremity, as described above. ACT 112: Negative or not required by law. Electronically signed by: Tirso So M.D. 09/27/2022 1:52 PM
[2022-09-27 14:04] LABS: INR 1.1 (0.9-1.1); Partial Thromboplastin Ratio 0.9; Partial Thromboplastin Time 24.7 Seconds (21.0-31.0); Prothrombin Time 12.1 Seconds (9.0-12.0)
--- NOTE | 2022-09-27 14:12 | Electrocardiogram Report ---
Test Reason : Blood Pressure : / mmHG Vent. Rate : 088 BPM Atrial Rate : 088 BPM P-R Int : 166 ms QRS Dur : 086 ms QT Int : 378 ms P-R-T Axes : 032 027 013 degrees QTc Int : 457 ms Normal sinus rhythm Nonspecific ST and T wave abnormality Abnormal ECG When compared with ECG of 08-AUG-2010 07:11, Nonspecific T wave abnormality now evident in Anterior leads Confirmed by Evan Kuo ([id number]) on 09/27/2022 2:11:53 PM Referred By: Confirmed By:Evan Kuo
[2022-09-27] MEDS ORDERED: ACETAMINOPHEN 325 MG TAB PO PRN (16:09)
[2022-09-27] MEDS ORDERED: FLUTICASONE PROPIONATE NA SPR 16 GM BTL NAE PRN (16:35)
[2022-09-27] MEDS ORDERED: GABAPENTIN 100 MG CAP PO PRN (16:35)
[2022-09-27 20:49] LABS: Partial Thromboplastin Ratio 1.5
[2022-09-27 20:52] LABS: Partial Thromboplastin Time 41.1 Seconds (21.0-31.0)
[2022-09-28 02:50] LABS: Partial Thromboplastin Ratio 1.5
[2022-09-28] MEDS: HEPARIN SODIUM/DEXTROSE 25,000 UNITS/500 ML BAG IV SCH ×2 (03:10→18:34)
[2022-09-28 03:14] LABS: Partial Thromboplastin Time 42.7 Seconds (21.0-31.0)
[2022-09-28 06:57] LABS: Calcium 8.8 mg/dl (8.6-10.3); Creatinine Clr Calc Pharmacy 138.4 ml/min; Est GFR (African American) 113.4 ml/min; Est GFR (Non-African American) 97.9 ml/min; Potassium 3.5 mmol/L (3.5-5.1)
[2022-09-28 07:10] LABS: Hematocrit (blood only) 38.5 % (42.0-52.0); Hemoglobin 13.2 g/dl (14.0-18.0); Mean Corpuscular Hemoglobin 31.7 pg (25.0-34.0); Mean Corpuscular Hgb Conc 34.3 g/dL (32.0-36.0); Mean Corpuscular Volume 92.3 fL (80.0-100.0); Mean Platelet Volume 9.6 fL (9.4-12.4); Platelet Count 269 K/uL (130-400); RDW Coefficient of Variation 12.8 % (11.5-14.5); RDW Standard Deviation 43.1 fL (36.4-46.3); Red Blood Count 4.17 M/uL (4.70-6.10); White Blood Count 8.92 K/ul (4.8-10.8)
--- NOTE | 2022-09-28 17:48 | Hospitalist Progress Note ---
Date of Service September 28, 2022 Assessment & Plan (1) Saddle pulmonary embolus: Plan: With saddle embolus and extensive bilat PEs, with acute RLE DVT in femoral,popliteal, tibial,peroneal veins Seen by log processor operator and since the patient is hemodynamically stable without end organ symptoms -treat with heparin IV, no thrombolytics at this time. PTTs are therapeutic PESI score 66 - low risk Okay to ambulate in room Echocardiogram pending Troponin elevated/peaked at 106 on admission and trended downward, related to PE Would consider lifelong treatment given prothrombin gene mutation and strong family history along with extensive PEs and saddle embolus-discussed with jeffrey montero Plan to convert heparin to Xarelto on discharge-manager logistic/nurse navigator will provide coupon for Xarelto Monitor for hypoxia, hypotension (2) ZACKARY (obstructive sleep apnea): Plan: Has not worn CPAP for 2 years due to his machine being broken. CPAP HS. Hold if hypotensive. (3) Hypertension: Plan: Continue to hold HCTZ and lisinopril given normal blood pressures Monitor blood pressures and restart as necessary (4) Idiopathic polyneuropathy: Plan: Continue gabapentin PRN Plan Disposition -continued stay on PCU Admission and Anticipated Discharge Date Admission Date: September 27, 2022 Subjective Pt reports dyspnea with ambulating in room, no CP, no cough, no fevers. Has some pain in RLE with hanging leg over bed in seated position for extended periods. No h/o bleeding from anywhere. Left shoulder not causing pain. Tele with NSR, rates 90s Physical Exam Constitutional: WD/WN, vitals as above ENMT: external ear and nose normal, oropharynx normal Neck: trachea midline, no thyromegaly Respiratory: normal respiratory effort, lungs clear to auscultation Cardiovascular: Rate/Rhythm: regular rate and regular rhythm Heart Sounds: no murmur Vessels: dorsalis pedis pulses present Extremities: + edema (RLE 1+ edema to thigh) Chest (Breasts): Chest: normal inspection of chest Gastrointestinal (Abdomen): normal bowel sounds, soft, nontender, no hepatosplenomegaly Musculoskeletal: Extremities: + extremities abnormal to inspection (left shoulder incisional scars well healed), no cyanosis and no clubbing Skin: no rashes, warm and dry Neurologic: moves all extremities and awake; no focal motor deficits Psychiatric: A+Ox3, euthymic affect Results & Data Results & Data Vital Signs (Past 12 Hours) Vital Signs Temp Pulse Pulse Resp BP Pulse Ox O2 Del Method 09/28/22 15:03 36.8 C 89 18 118/70 95 Room Air 09/28/22 11:24 37 C 85 20 120/79 95 Room Air 09/28/22 08:00 81 09/28/22 08:00 Room Air 09/28/22 07:12 36.8 C 84 18 139/65 97 Room Air Laboratory Results CBC, BMP, PTT, troponin reviewed PG Care Time/CCT Total # of Minutes Spent Total Time Spent with Patient: Total time spent is greater than 50% in coordination of care (as documented) at patient's floor/unit and/or counseling patient: Coding Level of Care Code 91826 SUB INP/OBS CARE 2/35MIN Diagnoses Saddle pulmonary embolus I26.92 ZACKARY (obstructive sleep apnea) G47.33 Hypertension I10 Idiopathic polyneuropathy G60.9
--- NOTE | 2022-09-28 18:00 | XCELERA ---
[id number]
[2022-09-29 06:54] LABS: Basophils # (auto) 0.06 K/uL (0-0.2); Basophils % (auto) 0.8 %; Eosinophils # (auto) 0.25 K/uL (0-0.50); Eosinophils % (auto) 3.2 %; Hematocrit (blood only) 40.4 % (42.0-52.0); Hemoglobin 13.7 g/dl (14.0-18.0); Immature Granulocytes # (auto) 0.06 K/uL (0.01-0.20); Immature Granulocytes % (auto) 0.8 %; Lymphocytes # (auto) 2.91 K/uL (1.2-3.4); Lymphocytes % (auto) 36.7 %; Mean Corpuscular Hemoglobin 31.6 pg (25.0-34.0); Mean Corpuscular Hgb Conc 33.9 g/dL (32.0-36.0); Mean Corpuscular Volume 93.3 fL (80.0-100.0); Mean Platelet Volume 9.3 fL (9.4-12.4); Monocytes # (auto) 0.79 K/uL (0.11-0.59); Neutrophils # (auto) 3.85 K/uL (1.40-6.50); Neutrophils % (auto) 48.5 %; Platelet Count 297 K/uL (130-400); RDW Coefficient of Variation 12.4 % (11.5-14.5); RDW Standard Deviation 42.8 fL (36.4-46.3); Red Blood Count 4.33 M/uL (4.70-6.10); White Blood Count 7.92 K/ul (4.8-10.8)
[2022-09-29] MEDS: HEPARIN SODIUM/DEXTROSE 25,000 UNITS/500 ML BAG IV SCH ×2 (07:02→21:05)
[2022-09-29 07:37] LABS: BUN Creatinine Ratio 13.7 (10-20); Calcium 9.3 mg/dl (8.6-10.3); Creatinine Clr Calc Pharmacy 122.4 ml/min; Est GFR (African American) 103.3 ml/min; Est GFR (Non-African American) 89.1 ml/min; Potassium 4.2 mmol/L (3.5-5.1)
[2022-09-29 07:41] LABS: Partial Thromboplastin Ratio 1.4
[2022-09-29 07:59] LABS: Partial Thromboplastin Time 40.4 Seconds (21.0-31.0)
--- NOTE | 2022-09-29 20:13 | Hospitalist Progress Note ---
Date of Service September 29, 2022 Assessment & Plan (1) Saddle pulmonary embolus: Plan: With saddle embolus and extensive bilat PEs, with acute RLE DVT in femoral,popliteal, tibial,peroneal veins Seen by hydraulic operator upon admission and since the patient remains hemodynamically stable without end organ symptoms -treat with heparin IV, no thrombolytics at this time. PTTs are therapeutic PESI score 66 - low risk but given concomitant proximal right lower extremity DVT, needs admission Okay to ambulate in room but no heavy exertion recommended Echocardiogram shows mild RV dysfunction Troponin elevated/peaked at 106 on admission and trended downward, related to PE Would consider lifelong treatment given prothrombin gene mutation and strong family history along with extensive PEs and saddle embolus-discussed with patient. Consider hematology consultation prior to discontinuation of anticoagulation Recommend at least 3 to 6 months of anticoagulation at therapeutic dosing Plan to convert heparin to Xarelto on discharge-manager database/nurse navigator will provide coupon for Xarelto-can likely convert to Xarelto on 09/30 as it will be greater than 48 hours on heparin drip Monitor for hypoxia, hypotension-none so far and blood pressures are actually becoming elevated off of his antihypertensives Avoid positive pressure ventilation and IV fluids (2) Deep vein thrombosis of right lower extremity: Plan: As above Should wear graduated compression stockings after discharge for at least 6 months (3) Hypertension: Plan: Continue to hold HCTZ but will now restart lisinopril as blood pressures are becoming elevated (4) Idiopathic polyneuropathy: Plan: Continue gabapentin PRN (5) 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 Plan Disposition -continued stay on PCU, but improving. May ambulate in the halls. Still having some pain in the right lower extremity from DVT. Consider discharge in the next 1 to 2 days Admission and Anticipated Discharge Date Admission Date: September 27, 2022 Subjective Patient reports ongoing pain in the right lower extremity with hanging off the bed and with walking around the room. Denies shortness of breath but has only ambulated short distances in the room. No chest pains or nausea, no abdominal pains. Had a bowel movement today, no blood in the stool. Telemetry with normal sinus rhythm with rates in the 70s to 80s Physical Exam Constitutional: WD/WN, vitals as above Neck: trachea midline, no thyromegaly Respiratory: normal respiratory effort, lungs clear to auscultation Cardiovascular: Rate/Rhythm: regular rate and regular rhythm Heart Sounds: no murmur Extremities: + edema (RLE trace edema to knee, improving) Chest (Breasts): Chest: normal inspection of chest Gastrointestinal (Abdomen): normal bowel sounds, soft, nontender, no hepatosplenomegaly Musculoskeletal: Extremities: + extremities abnormal to inspection (left shoulder incisional scars well healed), no cyanosis and no clubbing Skin: no rashes, warm and dry Neurologic: moves all extremities and awake; no focal motor deficits Psychiatric: A+Ox3, euthymic affect Results & Data Results & Data Vital Signs (Past 12 Hours) Vital Signs Temp Pulse Pulse Resp BP Pulse Ox O2 Del Method 09/29/22 20:03 37.0 C 81 20 160/91 H 97 Room Air 09/29/22 16:28 37.1 C 78 18 151/88 H 96 Room Air 09/29/22 15:41 78 09/29/22 12:22 37.2 C 88 18 137/84 96 Room Air 09/29/22 09:37 80 Laboratory Results CBC, BMP, PTT, magnesium all reviewed PG Care Time/CCT Total # of Minutes Spent Total Time Spent with Patient: Total time spent is greater than 50% in coordination of care (as documented) at patient's floor/unit and/or counseling patient: Coding Level of Care Code 26162 SUB INP/OBS CARE 2/35MIN Diagnoses Saddle pulmonary embolus I26.92 Deep vein thrombosis of right lower extremity I82.401 Hypertension I10 Idiopathic polyneuropathy G60.9 Prothrombin [id number] mutation D68.52 ZACKARY (obstructive sleep apnea) G47.33
[2022-09-29] MEDS: lisinopril 20 MG TAB PO SCH (21:05)
[2022-09-30 06:46] LABS: Basophils # (auto) 0.04 K/uL (0-0.2); Basophils % (auto) 0.5 %; Eosinophils # (auto) 0.29 K/uL (0-0.50); Eosinophils % (auto) 3.3 %; Hematocrit (blood only) 39.4 % (42.0-52.0); Hemoglobin 13.5 g/dl (14.0-18.0); Immature Granulocytes # (auto) 0.08 K/uL (0.01-0.20); Immature Granulocytes % (auto) 0.9 %; Lymphocytes # (auto) 2.31 K/uL (1.2-3.4); Lymphocytes % (auto) 26.3 %; Mean Corpuscular Hemoglobin 31.8 pg (25.0-34.0); Mean Corpuscular Hgb Conc 34.3 g/dL (32.0-36.0); Mean Corpuscular Volume 92.9 fL (80.0-100.0); Mean Platelet Volume 9.7 fL (9.4-12.4); Monocytes # (auto) 0.75 K/uL (0.11-0.59); Monocytes % (auto) 8.6 %; Neutrophils % (auto) 60.4 %; Platelet Count 339 K/uL (130-400); RDW Coefficient of Variation 12.6 % (11.5-14.5); RDW Standard Deviation 42.8 fL (36.4-46.3); Red Blood Count 4.24 M/uL (4.70-6.10); White Blood Count 8.77 K/ul (4.8-10.8)
[2022-09-30 06:54] LABS: Calcium 9.3 mg/dl (8.6-10.3); Creatinine Clr Calc Pharmacy 139.8 ml/min; Est GFR (Non-African American) 98.4 ml/min; Potassium 4.1 mmol/L (3.5-5.1)
[2022-09-30 07:48] LABS: Partial Thromboplastin Ratio 1.5
[2022-09-30] MEDS: lisinopril 20 MG TAB PO SCH (07:50)
[2022-09-30] MEDS ORDERED: RIVAROXABAN 15 MG TAB PO SCH (09:00)
--- NOTE | 2022-09-30 09:46 | Discharge Summary ---
Date of Service September 30, 2022 Admission HPI Per Admitting Provider Anam Schultz is a 57 year old male who presents to the ER with right leg pain and shortness of breath. He reports initial symptoms of chest tightness of exertion with shortness of breath on exertion started on Sunday (3 days previously). The following day he started having right thigh and calf pain. In the ER he underwent CT for PE showing a saddle embolus. He recently underwent left shoulder arthroplasty on August 14 with post operative course of aspirin for VTE prophylaxis. No recent long haul car/plane journeys. He reports have a superficial right lower extremity thrombus treated with conservative measures approximately 2 years ago. He has a strong family history with his brother and sister diagnosed with pulmonary embolism and subsequently tested heterozygous for prothrombin [id number] mutation. No previous personal deep vein thrombosis. Admission Exam Per Admitting Provider Constitutional: WD/WN, vitals as above Eyes: + anicteric sclerae; normal pupil size ENMT: external ear and nose normal, oropharynx normal Neck: trachea midline, no thyromegaly Respiratory: normal respiratory effort; no respiratory distress Auscultation: lungs clear to auscultation bilaterally; breath sounds present, no diminished lung sounds, no crackles and no rales Cardiovascular: RRR, no murmur, no edema Extremities: normal capillary refill and + calf tenderness (right); no pedal edema Gastrointestinal (Abdomen): normal bowel sounds, soft, nontender, no hepatosplenomegaly Musculoskeletal:L no cyanosis or clubbing, extremities motor strength 5/5 Skin: no rashes, warm and dry Neurologic: moves all extremities and awake; not confused Psychiatric: A+Ox3, euthymic affect Principal Diagnosis Saddle Pulmonary Emobolism Discharge Exam Constitutional WD/WN, vitals as above no acute distress Eyes + anicteric sclerae ENMT external ear and nose normal, oropharynx normal Neck trachea midline Respiratory normal respiratory effort, lungs clear to auscultation Cardiovascular Rate/Rhythm: regular rate and regular rhythm Heart Sounds: normal S1 and normal S2; no murmur Extremities: + pedal edema (R LE) Musculoskeletal Head/Neck/Chest: normocephalic and head atraumatic Skin no rashes, warm and dry Neurologic moves all extremities Psychiatric A+Ox3, euthymic affect Discharge Data Allergies Allergy/AdvReac Type Severity Reaction Status Date / Time clams Allergy Severe Vomiting Verified 09/27/22 14:33 Consultations 09/27/22 13:06 Consult Grocery Bagger Stat ED Decision to Admit Stat Ordered Studies 09/27/22 12:01 CT angio chest PE protocol Stat US venous doppler LE RT Stat Hospital Course (1) Saddle pulmonary embolus: Mr. Schultz is a 57 yo M who presented to [facility] with chest pain and dyspnea on ex ertion who has found to have a saddle embolus and extensive bilateral pulmonary emboli. - Chest CTA showed saddle embolus and extensive bilateral pulmonary emboli; acute RLE DVT in femoral, popliteal, tibial, and peroneal veins - Echocardiogram showed mild RV dysfunction - Troponin elevated/peaked at 106 on admission and trended downward, related to PE - PESI score is 66, class II low risk - Patient was hemodynamically stable without end organ symptoms throughout admission - he was treated with a heparin drip; thrombolytics were not administered - After 48 hours on heparin drip, patient was transitioned to Xarelto 15mg BID for 21 days. His dose should be changed to 20mg once daily thereafter. He is aware to take with food. He should remain in this dose for at least 3-6 months. - He had a superficial right lower extremity thrombus treated conservatively two years ago, but no personal history of DVT. Additionally, he has a strong family history of PEs; heis heterozygous for prothrombin [id number] mutation. Suspect he will need lifelong anticoagulation; consideration can be given to 10mg maintenance dose of Xarelto after he reaches the 6 month natty. - This incidence occurred in the post-operative setting (ie shoulder surgery with Dr. aCro on 08/14/22) despite daily aspirin use for post-operative prophylaxis. - Referral placed for him to be seen by Dr. Bhandari in Hematology - He was directed to increase ambulation as tolerated (2) Deep vein thrombosis of right lower extremity: As above Should wear graduated compression stockings after discharge for at least 6 months while awake (3) Hypertension: - home lisinopril restarted prior to admission - counseled him to resume his HCTZ only if his systolic value exceeds 130 -- he does have a home BP cuff to measure (4) Idiopathic polyneuropathy: Continue gabapentin PRN (5) Prothrombin [id number] mutation: With heterozygous mutation 2 siblings with prothrombin gene mutation and history of VTE Consider consultation with hematology as an outpatient, may consider lifelong anticoagulation (6) ZACKARY (obstructive sleep apnea): Has not worn CPAP for 2 years due to his machine being broken. --- I did advised him to discuss getting a new machine with his PCP at hospital follow up visit Total Time Total Time Spent Total Time Spent (In Minutes): 35 Total Time Includes: Examination of the Patient, Discharge Planning and Medication Reconciliation Discharge Plan Discharge Items Patient Disposition: Home - Self-Care Reason For Visit: SADDLE PULMONARY EMBOLUS Discharge Diagnosis: Pulmonary emboli Activity: Per Instructions section Weightbearing: Full weightbearing Non-emergency contact: Primary Care Provider and Oncologist Call non-emergency contact if: your symptoms worsen Follow-up/Referrals: Karina Nascimento MD [Primary Care Provider] - Noah Bhandari MD [Physician] - Diet: Regular Addtl Attending Provider Instructions: You were hospitalized at [facility] for shortness of breath and found to have blood clots in your lungs and right lower leg. You were placed on a heparin drip to thin the blood. The blood thinner does not "dissolve the clots," rather it prevents them from getting larger. Over time, your body will naturally degrade the clots. You had an echocardiogram of your heart, which showed evidence of mild strain of the right side of the heart -- which is certainly from the blood clots. By the time of your hospital discharge, you were transitioned to an oral blood thinner, Xarelto. You will take 15mg twice daily with food for the next 21 days. Please start your evening dose tonight, 09/30/22. Then you will take 20mg once daily with food thereafter. We suspect you will need to be on a blood thinner for the rest of your life, but we would like you to see Dr. Bhandari in hematology for further guidance. As for your activity level, please gradually increase as tolerated. If you get lightheaded/dizzy, short of breath, leg pain or swelling, this is a sign you pushed yourself too far and you should stop and relax. While on a blood thinner, you are at a higher risk of bleeding, both internally and externally (ie bruising). If you ever fall and strike your head, you must go the local emergency department and have a cat scan of your head to make sure you do not have a brain bleed. Additionally, we want you wearing compression stockings on your legs everyday for at least the next 6 months while you are awake (ie you can take them off when in bed at night). We initially held (did not administer) your blood pressure medications while you were in the hospital. Your blood pressure was lowered from the blood clots in the lungs. It did improve while under our care. We restarted your home dose of lisinopril -- but continued to hold your home dose of hydrochlorothiazide. You may resume the hydrochlothiazide once the top number of your blood pressure exceeds 130. Please follow up with Dr. Nascimento in 1-2 weeks of your hospital discharge. She will write the script for the next dose of your Xarelto. Finally, please contact your PCP, Dr. Nascimento, to address getting a new CPAP device ordered for your sleep apnea. If your breathing abruptly worsens at any point, please return to the [facility] ED. Pending Studies at Discharge: No Stand-Alone Forms: My [facility], Smoking Cessation Medications and DC Order Prescriptions: New Xarelto 15 mg Tablet 15 mg PO BID 21 Days Qty: 41 0RF Continued albuterol sulfate [Ventolin HFA] 90 mcg/actuation HFA aerosol inhaler 2 puff inhalation Q6H PRN (Reason: Shortness Of Breath Or Wheezing) azelastine 137 mcg (0.1 %) aerosol,spray 2 spray intranasal BID PRN (Reason: Allergy Symptoms) Rx Instructions: administer into each nostril gabapentin 100 mg capsule 100 mg PO DAILY PRN (Reason: Pain) lisinopril 20 mg tablet 20 mg PO DAILY multivitamin Tablet 1 tab PO QAM hydrochlorothiazide 25 mg Tablet 25 mg PO QAM fluticasone propionate 50 mcg/actuation [place],Suspension 1 spray INTRANASAL BID PRN (Reason: Allergy Symptoms) Rx Instructions: administer into each nostril Discharge Orders: Discharge Order (Routine); Ordered 09/30/22 Ordered By: Chio Shafer Admission Data Admit Date/Time: 09/27/22 13:39 Attending Provider: Chio Shafer Admit Provider: Kishor Monte Primary Care Provider: Karina Nascimento Other Providers: Anam Power ; Kishor Monte ; Venita Fields Other Interventions: Discharge Summary Assessment (RN) Last Done: 09/30/22 12:22 Coding Level of Care Code 14957 INP/OBS DISCH >30 MIN Diagnoses Saddle pulmonary embolus I26.92 Deep vein thrombosis of right lower extremity I82.401 Hypertension I10 Idiopathic polyneuropathy G60.9 Prothrombin [id number] mutation D68.52 ZACKARY (obstructive sleep apnea) G47.33
== END 2022-09-30 13:04 | disposition home or self-care (01) | DRG 176 ==
LOC: ED 11:05 → 2E 13:39 → SUATTDRO 13:39 → 2E 15:15

== ENCOUNTER 2023-12-03 14:44 | Inpatient (IN) ==
[2023-12-03 15:25] LABS: iSTAT Creatinine 1.2 mg/dl (0.6-1.3); iSTAT Hemoglobin 15.3 g/dl (14.0-18.0); iSTAT Ionized Calcium 1.15 mmol/l (1.12-1.32); iSTAT Potassium 3.8 mmol/L (3.3-5.0)
--- NOTE | 2023-12-03 15:56 | XRay Report ---
SINGLE VIEW CHEST CLINICAL HISTORY: Atypical chest pain FINDINGS: A PA chest radiograph is compared to study dated 12/05/2022 and correlated with chest CT jimy ed 08/20/2023. The heart is enlarged noting atherosclerotic calcification of the thoracic aorta. The p ulmonary vasculature is noncongested. Chronic interstitial thickening is similar to previous. The brittany gs and pleural spaces are clear. No pneumothorax is seen. The skeletal structures are osteopenic. The bony thorax is grossly intact. IMPRESSION: Cardiomegaly with no acute cardiopulmonary abnormality identified. ACT 112: Negative or not required by law. Electronically signed by: Mode Diaz M.D. 12/03/2023 3:55 PM
[2023-12-03 15:59] LABS: Basophils # (auto) 0.07 K/uL (0.00-0.20); Basophils % (auto) 0.6 %; Eosinophils # (auto) 0.08 K/uL (0.00-0.50); Eosinophils % (auto) 0.7 %; Hematocrit (blood only) 43.1 % (42.0-52.0); Hemoglobin 14.7 g/dl (14.0-18.0); Immature Granulocytes # (auto) 0.05 K/uL (0.01-0.20); Immature Granulocytes % (auto) 0.5 %; Lymphocytes # (auto) 2.55 K/uL (1.20-3.40); Lymphocytes % (auto) 23.2 %; Mean Corpuscular Hgb Conc 34.1 g/dL (32.0-36.0); Mean Corpuscular Volume 93.9 fL (80.0-100.0); Mean Platelet Volume 9.1 fL (9.4-12.4); Monocytes # (auto) 0.89 K/uL (0.11-0.59); Monocytes % (auto) 8.1 %; Neutrophils # (auto) 7.35 K/uL (1.40-6.50); Neutrophils % (auto) 66.9 %; Platelet Count 266 K/uL (130-400); RDW Coefficient of Variation 12.6 % (11.5-14.5); RDW Standard Deviation 43.5 fL (36.4-46.3); Red Blood Count 4.59 M/uL (4.70-6.10); White Blood Count 10.99 K/ul (4.8-10.8)
[2023-12-03 16:04] LABS: Albumin Globulin Ratio 1.4 (0.9-2); Albumin Level 4.5 gm/dl (3.4-5.0); BUN Creatinine Ratio 21.5 (10-20); Bilirubin,Total 0.7 mg/dl (0.2-1.0); Calcium 10.4 mg/dl (8.6-10.3); Creatinine Clr Calc Pharmacy 107.6 ml/min; Est GFR (African American) 88.8 ml/min; Est GFR (Non-African American) 76.7 ml/min; Globulin 3.2 gm/dl (2.5-4.0); Potassium 4.1 mmol/L (3.5-5.1); Total Protein 7.7 gm/dl (6.0-8.3)
--- NOTE | 2023-12-03 16:09 | Electrocardiogram Report ---
Test Reason : Blood Pressure : / mmHG Vent. Rate : 084 BPM Atrial Rate : 084 BPM P-R Int : 180 ms QRS Dur : 094 ms QT Int : 374 ms P-R-T Axes : 029 029 013 degrees QTc Int : 441 ms Normal sinus rhythm Normal ECG When compared with ECG of 05-DEC-2022 18:38, No significant change was found Confirmed by Shawn Major ([id number]) on 12/03/2023 4:09:41 PM Referred By: Confirmed By:Logan Major
[2023-12-03 16:10] LABS: Troponin I High Sensitivity 9.3 pg/ml (0-20)
[2023-12-03 16:18] LABS: INR 1.2 (0.9-1.1); Partial Thromboplastin Ratio 1.2; Partial Thromboplastin Time 32 Seconds (21-31); Prothrombin Time 13.3 Seconds (9.0-12.0)
--- NOTE | 2023-12-03 16:55 | Emergency Department Note ---
Impression & Plan Pulmonary embolism, Noncompliance with medication regimen ED Provider Note NAME: TAINA PALOMINO AGE: 58 SEX: M : 1965 ARRIVES VIA: Walk-In INFORMANT: Patient, ED PROVIDER(S): Taiwo Daley MD CHIEF COMPLAINT: Chest pain HPI: This is a 58-year-old male presenting for midsternal chest pain/shortness of breath. Patient notes he woke up around 5 in the morning, was outside doing yard work. He notes that he began having midsternal chest pain and shortness of breath. He notes he feels lightheaded when standing specifically. he is having squeezing type pain in his chest, specifically with walking. He notes some radiation of pain to his right neck as well. Patient had a cardiac events however has had a saddle pulmonary emboli about 1 year ago. Patient is currently on Xarelto for his previous pulmonary embolism. ROS: See above HPI for pertinent positives & negatives. A total of 10 systems reviewed and were otherwise negative. PHYSICAL EXAMINATION: General: resting comfortably in no acute distress Head: Normocephalic and atraumatic Eyes: Normal inspection, extraocular muscles intact Ear, nose, throat: Normal external exam Neck: Normal range of motion Respiratory: lungs clear to auscultation bilaterally Cardiovascular: Regular rate/rhythm, no murmur GI: soft, nontender, no guarding or rebound Extremities: nontender, moves all extremities Neuro: The patient awake and alert, appropriately conversive, no focal deficits, symmetric faces Skin: Warm, dry, and intact MEDICAL DECISION MAKING: This is a 58-year-old male present for midsternal chest pain/shortness of breath. Consider ACS, PE, pneumonia, CHF, dehydration. -Blood work is reviewed showed no severe abnormalities including troponin elevation. -D-dimer is elevated at this time, will proceed to CTA due to previous history and current symptoms/shortness of breath -ECG independently interpreted by me with normal sinus rhythm, rate of 84, normal axis, normal [place], normal QRS, normal QTc, no ST segment elevations consistent with STEMI criteria -Patient CTA does reveal segmental/subsegmental pulm emboli. -Patient does mention that he missed 2 doses of his Xarelto. He also been taking 20 mg of Xarelto every other day instead of 10 mg daily as he had these pills left over. -Based on patient being on blood thinners, not having new pulmonary embolism, will admit for further evaluation. Differential diagnosis: ACS, PE, CHF, pneumonia, dehydration ER treatment provided: See below Diagnostics interpreted by me: ECG: See above Cardiac Monitoring: An order was placed for continuous cardiac monitoring. The monitor shows a rate of 71 with sinus rhythm. Laboratory studies: As stated above and show below. Imaging studies: See below. 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) Bronchitis hx Rectus diastasis Hypertension Asthma mild, rarely uses inhaler Low back pain ZACKARY (obstructive sleep apnea) no device Idiopathic polyneuropathy Medical History Hx of blood clots superficial - right calf- ~ 1 yr ago Surgical History History of esophagogastroduodenoscopy (EGD) Hx of wisdom tooth extraction Hx of arthroscopy of shoulder right Hx of colonoscopy Previous back surgery L4-L5 2009 Family History Mother Diabetes Grandfather (Paternal) Lung cancer Father Pancreatic cancer Sister Clotting disorder Brother Clotting disorder Social History Smoking Status: Never smoker Tobacco Type: Smokeless Tobacco (Dip or Chew) packs per day: 1; Cigarettes Per Day: quit ~ 8 yrs ago; Second Hand Exposure: No; Do You Dip or Chew Tobacco: Yes; Hx Alcohol Use: Yes Alcohol type: beer Hx Substance Use: No Preferred Language: Somali Communication Ability: Effective Adult Neurologist Required: No Beliefs That Will Affect Care: None marital status: Current Living Situation: Spouse Other Information That Helps Us Care for You: No Feels Safe at Home: Yes Safety Concerns: Feels Safe At This Time during the past year weight has: remained stable Assistive Devices: None Allergies Allergies Allergy/AdvReac Type Severity Reaction Status Date / Time clams Allergy Severe Vomiting Verified 09/27/22 14:33 Home Meds Home Medications Medication Instructions Recorded Confirmed albuterol sulfate 90 mcg/actuation 2 puff inhalation Q6H PRN 06/27/21 12/03/23 aerosol inhaler (Ventolin HFA) Shortness Of Breath Or Wheezing azelastine 137 mcg (0.1 %) nasal 2 spray intranasal BID PRN Allergy 06/27/21 12/03/23 spray aerosol Symptoms gabapentin 100 mg capsule 100 mg PO DAILY PRN Pain 06/27/21 12/03/23 lisinopril 20 mg tablet 20 mg PO DAILY 06/27/21 12/03/23 fluticasone propionate 50 1 spray intranasal BID PRN Allergy 08/08/22 12/03/23 mcg/actuation nasal Symptoms spray,suspension multivitamin 1 tab PO QAM 08/08/22 12/03/23 rivaroxaban 10 mg tablet (Xarelto) 10 mg PO DAILY 12/03/23 12/03/23 tramadol 50 mg tablet 50 mg PO Q8H PRN Pain 12/03/23 12/03/23 Results & Data (ED) Vital Signs Vital Signs - 24 hr 12/03/23 14:49 12/03/23 17:25 12/03/23 17:28 Temperature 36.7 C Temperature Source Temporal Artery Scan Pulse Rate 91 H 76 Pulse Rate [Right Finger] 76 Pulse Rhythm [Right Finger] Pulse Strength [Right Finger] Respiratory Rate 18 18 22 Respiratory Effort / Characteristics Non-Labored Spontaneous Non-Labored Spontaneous Respiratory Depth Normal Normal Respiratory Pattern Regular Blood Pressure 157/108 H Blood Pressure [Right Arm] 133/87 Blood Pressure Mean 124 Blood Pressure Mean [Right Arm] 102 Blood Pressure Position Sitting Blood Pressure Position [Right Arm] Pulse Oximetry 100 100 98 Oxygen Delivery Method Room Air Room Air Room Air Sepsis Recent Fever Within 48 Hours No Sepsis New/Unexplained Change in Mental Status No Sepsis Action Taken by Nursing No Action Required 12/03/23 18:20 12/03/23 18:53 12/03/23 18:53 Temperature Temperature Source Pulse Rate 77 Pulse Rate [Right Finger] 75 Pulse Rhythm [Right Finger] Regular Pulse Strength [Right Finger] Normal Respiratory Rate 17 Respiratory Effort / Characteristics Non-Labored Respiratory Depth Normal Respiratory Pattern Regular Blood Pressure Blood Pressure [Right Arm] 134/83 Blood Pressure Mean Blood Pressure Mean [Right Arm] 100 Blood Pressure Position Blood Pressure Position [Right Arm] Lying Pulse Oximetry 98 97 Oxygen Delivery Method Room Air Room Air Sepsis Recent Fever Within 48 Hours Sepsis New/Unexplained Change in Mental Status Sepsis Action Taken by Nursing 12/03/23 20:00 Temperature Temperature Source Pulse Rate Pulse Rate [Right Finger] 71 Pulse Rhythm [Right Finger] Pulse Strength [Right Finger] Respiratory Rate 16 Respiratory Effort / Characteristics Respiratory Depth Respiratory Pattern Blood Pressure Blood Pressure [Right Arm] 185/89 H Blood Pressure Mean Blood Pressure Mean [Right Arm] 121 Blood Pressure Position Blood Pressure Position [Right Arm] Pulse Oximetry 99 Oxygen Delivery Method Room Air Sepsis Recent Fever Within 48 Hours Sepsis New/Unexplained Change in Mental Status Sepsis Action Taken by Nursing Laboratory Data 12/03/23 15:25 12/03/23 15:25 Lab Results 12/03/23 12/03/23 Range/Units 15:12 15:25 WBC 10.99 H (4.8-10.8) K/ul RBC 4.59 L (4.70-6.10) M/uL Hgb 14.7 (14.0-18.0) g/dl POC Hgb 15.3 (14.0-18.0) g/dl Hct 43.1 (42.0-52.0) % POC Hct 45 (42-52) % MCV 93.9 (80.0-100.0) fL MCH 32.0 (25.0-34.0) pg MCHC 34.1 (32.0-36.0) g/dL RDW Std Deviation 43.5 (36.4-46.3) fL RDW Coeff of Katharina 12.6 (11.5-14.5) % Plt Count 266 (130-400) K/uL MPV 9.1 L (9.4-12.4) fL Immature Gran % (Auto) 0.5 % Neut % (Auto) 66.9 % Lymph % (Auto) 23.2 % [place] % (Auto) 8.1 % Eos % (Auto) 0.7 % Baso % (Auto) 0.6 % Neut # (Auto) 7.35 H (1.40-6.50) K/uL Lymph # (Auto) 2.55 (1.20-3.40) K/uL [place] # (Auto) 0.89 H (0.11-0.59) K/uL Eos # (Auto) 0.08 (0.00-0.50) K/uL Baso # (Auto) 0.07 (0.00-0.20) K/uL Immature Gran # (Auto) 0.05 (0.01-0.20) K/uL PT 13.3 H (9.0-12.0) Seconds INR 1.2 H (0.9-1.1) APTT 32 H (21-31) Seconds PTT Ratio 1.2 D-Dimer 1350 H* (0-500) ug/L FEU POC Sodium 136 (135-144) mmol/L Sodium 136 (136-145) mmol/L POC Potassium 3.8 (3.3-5.0) mmol/L Potassium 4.1 (3.5-5.1) mmol/L POC Chloride 105 (101-112) mmol/L Chloride 101 (98-107) mmol/L Carbon Dioxide 24 (21-32) mmol/L POC Total CO2 22 L (24-31) mmol/L Anion Gap 11 (3-11) POC Anion Gap 14.0 L (16-25) mmol/L POC BUN 25 H (7-18) mg/dl BUN 23 (6-23) mg/dl Creatinine 1.07 (0.6-1.4) mg/dl POC Creatinine 1.2 (0.6-1.3) mg/dl Est Cr Clr Drug Dosing 107.6 ml/min Est GFR ( Amer) 88.8 ml/min Est GFR (Non-Af Amer) 76.7 ml/min BUN/Creatinine Ratio 21.5 H (10-20) Glucose 91 (70-99(Fasting)) mg/dl POC Glucose (other) 85 (70-99) mg/dl Calcium 10.4 H (8.6-10.3) mg/dl POC Ioniz Calcium Brock 1.15 (1.12-1.32) mmol/l Total Bilirubin 0.7 (0.2-1.0) mg/dl AST 38 (13-39) U/L ALT 37 (7-52) U/L Alkaline Phosphatase 74 (34-104) U/L Troponin I High Sens 9.3 (0-20) pg/ml Total Protein 7.7 (6.0-8.3) gm/dl Albumin 4.5 (3.4-5.0) gm/dl Globulin 3.2 (2.5-4.0) gm/dl Albumin/Globulin Ratio 1.4 (0.9-2) Administered Medications Heparin Sodium/Dextrose (Heparin Sodium/Dextrose) 25,000 units in 500 mls @ 36 mls/hr IV .[id number] COUNT INCLUDES THE [facility]; Protocol Stop: 01/02/24 19:59 Last Admin: 12/03/23 20:17 Dose: 1,800 units/hr, 36 mls/hr Documented By: SOHAM Co-signed By: SNS Discontinued Medications Ioversol (Optiray 320 125ml) 120 ml IV ONCE ONE Stop: 12/03/23 17:35 Last Admin: 12/03/23 17:34 Dose: 120 ml Documented By: TAISHA Imaging Data Radiologist's Impression: Chest X-Ray 12/03/23 14:53 SINGLE VIEW CHEST CLINICAL HISTORY: Atypical chest pain FINDINGS: A PA chest radiograph is compared to study dated 12/05/2022 and correlated with chest CT dated 08/20/2023. The heart is enlarged noting atherosclerotic calcification of the thoracic aorta. The pulmonary vasculature is noncongested. Chronic interstitial thickening is similar to previous. The lungs and pleural spaces are clear. No pneumothorax is seen. The skeletal structures are osteopenic. The bony thorax is grossly intact. IMPRESSION: Cardiomegaly with no acute cardiopulmonary abnormality identified. ACT 112: Negative or not required by law. Electronically signed by: Mode Diaz M.D. 12/03/2023 3:55 PM Chest CTA 12/03/23 16:56 CHEST CTA for PULMONARY ARTERIES CT DOSE: 933.97 mGy.cm HISTORY: Midsternal chest pain with shortness of breath. TECHNIQUE: Multiaxial CT images of the chest were performed following the intravenous administration of contrast to evaluate the pulmonary arteries. 3D/Maximal intensity projection images were also obtained. Sagittal and coronal reformations were also reviewed. A dose lowering technique was utilized adhering to the principles of ALARA. COMPARISON STUDY: Chest CTA 08/20/2023. FINDINGS: Normal caliber thoracic aorta with no evidence for a dissection. The heart is normal in size. No pleural or pericardial effusions. Chronic linear nonocclusive pulmonary emboli are again noted within the bilateral lower lobes and right upper lobe. The main pulmonary arteries are patent. There are new focal occlusive filling defects seen within a segmental/subsegmental branch of the right upper lobe on image 119 and within the distal subsegmental branches of the right middle lobe on image 67. These are consistent with acute pulmonary emboli. No evidence for right-sided heart strain. Mild calcified plaque within the left carotid artery again noted. Limited views of the upper abdomen demonstrate normal liver and spleen. Stable thickening of the left adrenal gland and a stable 2.1 cm right adrenal adenoma. Normal thyroid gland. Normal esophagus. Mild mediastinal and bilateral hilar lymphadenopathy remains unchanged. No acute fractures. No pneumothorax. The central airways are patent. No focal lung consolidations. No evidence for pulmonary edema. IMPRESSION: 1. Interval development of acute right upper and middle lobe segmental/subsegmental pulmonary emboli as described above. 2. Additional scattered chronic nonocclusive pulmonary emboli remain stable. 3. No evidence for right-sided heart strain. 4. No focal lung consolidations. ACT 112: Negative or not required by law. Electronically signed by: Wilmer Ivy M.D. 12/03/2023 6:02 PM Discharge Plan Visit Data Chief Complaint: Chest Pain Stated Complaint: CHEST PAIN, LIGHTHEADED, R SIDE NECK PAIN ED Provider: Taiwo Daley Discharge Problem: Pulmonary embolism, Noncompliance with medication regimen Patient Disposition: Admitted As Inpatient Discharge Instructions Interventions: ED Discharge Assessment Last Done: 12/03/23 20:25
[2023-12-03 16:56] LABS: D Dimer 1350 ug/L FEU (0-500)
[2023-12-03] MEDS: OPTIRAY 320 125ml IV ONE (17:34)
--- NOTE | 2023-12-03 18:04 | CT Scan Report ---
CHEST CTA for PULMONARY ARTERIES CT DOSE: 933.97 mGy.cm HISTORY: Midsternal chest pain with shortness of breath. TECHNIQUE: Multiaxial CT images of the chest were performed following the intravenous administration of contrast to evaluate the pulmonary arteries. 3D/Maximal intensity projection images were also obta ined. Sagittal and coronal reformations were also reviewed. A dose lowering technique was utilized a dhering to the principles of ALARA. COMPARISON STUDY: Chest CTA 08/20/2023. FINDINGS: Normal caliber thoracic aorta with no evidence for a dissection. The heart is normal in siz e. No pleural or pericardial effusions. Chronic linear nonocclusive pulmonary emboli are again noted within the bilateral lower lobes and right upper lobe. The main pulmonary arteries are patent. There are new focal occlusive filling defects seen within a segmental/subsegmental branch of the right uppe r lobe on image 119 and within the distal subsegmental branches of the right middle lobe on image 67. These are consistent with acute pulmonary emboli. No evidence for right-sided heart strain. Mild dayna cified plaque within the left carotid artery again noted. Limited views of the upper abdomen demonstr ate normal liver and spleen. Stable thickening of the left adrenal gland and a stable 2.1 cm right ad renal adenoma. Normal thyroid gland. Normal esophagus. Mild mediastinal and bilateral hilar lymphaden opathy remains unchanged. No acute fractures. No pneumothorax. The central airways are patent. No foc al lung consolidations. No evidence for pulmonary edema. IMPRESSION: 1. Interval development of acute right upper and middle lobe segmental/subsegmental pulmonary emboli as described above. 2. Additional scattered chronic nonocclusive pulmonary emboli remain stable. 3. No evidence for right-sided heart strain. 4. No focal lung consolidations. ACT 112: Negative or not required by law. Electronically signed by: Wilmer Ivy M.D. 12/03/2023 6:02 PM
--- NOTE | 2023-12-03 19:06 | History & Physical Report ---
Date of Service December 03, 2023 Assessment & Plan (1) Deep vein thrombosis of right lower extremity: Plan: Acute recurrent PE 1 week prior patient had approximately 3 hours of daily car travel with subsequent development of right proximal thigh pain and then developed shortness of breath 7/8. He has been taking his Xarelto every other day instead of daily. Discussed with heme/onc. DOes not represent failure as patient is not compliant with directed regimen. Suspect he was subtherapeutic and developed a DVT in the setting of extended car travel in the right leg and now with repeat PE. He took 20 g of Xarelto this morning. Heparinize overnight and will jameson sition to Eliquis tomorrow. Goal is to turn heparin drip off at 6 PM and give first dose of Eliquis at that time and will be on Eliquis indefinitely, if well can be discharged at that time. - Dopplers of RLE ordered No evidence of heart strain or saddle PE (2) Prothrombin [id number] mutation: (3) ZACKARY (obstructive sleep apnea): Plan: CPAP nightly. Plan Chronic stable issues Hypertension: Continue lisinopril DVT prophylaxis: Anticoagulated Disposition: Medical surgical CODE STATUS: Full code Diet: Regular History of Present Illness Primary Care Provider: Karina Nascimento MD Anam is 58-year-old male with past medical history of DVT/PE with saddle PE 1 year ago on Xarelto who developed exertional chest pain and dyspnea while doing yard work this morning. Squeezing pain in his chest with radiation into the neck and presented to the ER for reevaluation. D-dimer elevated, CTA shows interval development of acute right upper and middle lobe segmental/subsegmental PEs. No evidence of right heart strain, no recurrent saddle PE. High- sensitivity troponin is not elevated, and EKG is without acute ischemic change. Patient reports he has been taking his Xarelto, then notes he missed two doses. Dr. Maurer reduced him from 20mg daily to 10mg per day, but patient decided to take 20mg every other day instead over the past week. Likely w/ subtherapeutic levels. Prior DVT/PE was post shoulder surgery, no recent travel/trauma/injury this time. Has had R leg pain in the last week. Hadn't yet gotten to fill the 10mg script, so had been alternating for ~4 months. He reports he does not want to change blood thinners and does not want to take warfarin if at all possible. Started on the Xarelto, was not on eliquis. Has never been on other blood thinners. PE last year, and now. No other hx of clots. Has prothombin gene mutation. Took 20mg this morning of Xarelto ~6:30am. He is not short of breath now, but would be fatigued if he tried to walk. No chest pain at time of bedside assessment. Was driving with 3hours per day, in 1.5 hours each last week just prior to his leg pain starting. Medical History: Reviewed Medications: Reviewed Surgical History: Reviewed Family history: Reviewed Allergies: Reviewed Social History: Chews snuff. 1 can per week. ETOH 4-5 intermittently on weekends. Code Status: Full Code Allergies Allergy/AdvReac Type Severity Reaction Status Date / Time clams Allergy Severe Vomiting Verified 09/27/22 14:33 Home Medications Medication Instructions Recorded Confirmed Type albuterol sulfate 90 mcg/actuation 2 puff inhalation Q6H PRN 06/27/21 12/03/23 History aerosol inhaler (Ventolin HFA) Shortness Of Breath Or Wheezing azelastine 137 mcg (0.1 %) nasal 2 spray intranasal BID PRN Allergy 06/27/21 12/03/23 History spray aerosol Symptoms gabapentin 100 mg capsule 100 mg PO DAILY PRN Pain 06/27/21 12/03/23 History lisinopril 20 mg tablet 20 mg PO DAILY 06/27/21 12/03/23 History fluticasone propionate 50 1 spray intranasal BID PRN Allergy 08/08/22 12/03/23 History mcg/actuation nasal Symptoms spray,suspension multivitamin 1 tab PO QAM 08/08/22 12/03/23 History rivaroxaban 10 mg tablet (Xarelto) 10 mg PO DAILY 12/03/23 12/03/23 History tramadol 50 mg tablet 50 mg PO Q8H PRN Pain 12/03/23 12/03/23 History Past Med/Surg History Problem List Deep vein thrombosis of right lower extremity Prothrombin [id number] mutation Heterozygous Saddle pulmonary embolus (Acute) Bronchitis hx Rectus diastasis Hypertension Asthma mild, rarely uses inhaler Low back pain ZACKARY (obstructive sleep apnea) no device Idiopathic polyneuropathy Medical History Hx of blood clots superficial - right calf- ~ 1 yr ago Surgical History History of esophagogastroduodenoscopy (EGD) Hx of wisdom tooth extraction Hx of arthroscopy of shoulder right Hx of colonoscopy Previous back surgery L4-L5 2009 Family History Mother Diabetes Grandfather (Paternal) Lung cancer Father Pancreatic cancer Sister Clotting disorder Brother Clotting disorder Social History Smoking Status: Never smoker Tobacco Type: Cigarettes packs per day: 1; Cigarettes Per Day: quit ~ 8 yrs ago; Second Hand Exposure: No; Do You Dip or Chew Tobacco: Yes (advised); Hx Alcohol Use: Yes Alcohol type: beer Hx Substance Use: No Preferred Language: Greenlandic Communication Ability: Effective Tipple Repairer Required: No Beliefs That Will Affect Care: None marital status: Current Living Situation: Spouse Feels Safe at Home: Yes during the past year weight has: remained stable Assistive Devices: None Physical Exam Physical Exam: General: A&Ox3. NAD. Cooperative. HEENT: Atraumatic, normocephalic. Vision/hearing intact.PERLAA. Pulm: CTAB A&P. -wheezes, -rales, -rhonchi. Symmetrical chest rise. No increased work of breathing. No respiratory distress. Cardiac: RRR, -mrg. Radial pulses intact and symmetrical. Abdominal: Nontender, nondistended, soft. BS present. Ext: Proximal medial R thigh TTP. No ankle edema bilat. Results & Data Results & Data Vital Signs (Past 12 Hours) Vital Signs Temp Pulse Pulse Resp BP BP Pulse Ox 12/03/23 18:53 75 17 134/83 97 12/03/23 18:53 98 12/03/23 18:20 77 12/03/23 17:28 76 22 133/87 98 12/03/23 17:25 76 18 100 12/03/23 14:49 36.7 C 91 H 18 157/108 H 100 O2 Del Method 12/03/23 18:53 Room Air 12/03/23 18:53 Room Air 12/03/23 18:20 12/03/23 17:28 Room Air 12/03/23 17:25 Room Air 12/03/23 14:49 Room Air PG Care Time/CCT Total # of Minutes Spent Total Time Spent with Patient: Total time spent is greater than 50% in coordination of care (as documented) at patient's floor/unit and/or counseling patient: Coding Level of Care Code 96894 INT INP/OBS CARE 375MIN Diagnoses Deep vein thrombosis of right lower extremity I82.401 Prothrombin [id number] mutation D68.52 ZACKARY (obstructive sleep apnea) G47.33
[2023-12-03] MEDS: HEPARIN SODIUM/DEXTROSE 25,000 UNITS/500 ML BAG IV SCH (20:17)
[2023-12-03] MEDS ORDERED: traMADol HCL 50 MG TABLET PO PRN (21:05)
[2023-12-03] MEDS ORDERED: GABAPENTIN 100 MG CAP PO PRN (21:05)
[2023-12-03] MEDS ORDERED: ACETAMINOPHEN 325 MG TAB PO PRN (21:05)
[2023-12-03] MEDS ORDERED: ALBUTEROL HFA 8 GM INHALER INH PRN (21:05)
--- NOTE | 2023-12-04 | Ultrasound Report ---
Exam(s): US VENOUS RIGHT LOWER EXTREMITY EXAM: US Duplex Right Lower Extremity Veins CLINICAL HISTORY: Reason for exam: proximal R thigh pain, DD, recurrent PE. TECHNIQUE: Real-time duplex ultrasound scan of the right lower extremity veins integrating B-mode two-dimensional vascular structure, Doppler spectral analysis, color flow Doppler imaging and compression. COMPARISON: No relevant prior studies available. FINDINGS: Deep veins: Nonocclusive thrombus in the proximal/mid superficial femoral vein. Chronic-appearing thrombus in the popliteal vein. Superficial veins: Unremarkable. No thrombus in the visualized great saphenous vein. Soft tissues: No acute findings. No popliteal cyst. IMPRESSION: 1. Nonocclusive thrombus in the proximal/mid superficial femoral vein. 2. Chronic-appearing thrombus in the popliteal vein. Electronically signed by: Olu Gates MD 12/03/23 23:58 PM
[2023-12-04 02:30] LABS: Basophils # (auto) 0.05 K/uL (0.00-0.20); Basophils % (auto) 0.7 %; Eosinophils # (auto) 0.13 K/uL (0.00-0.50); Eosinophils % (auto) 1.7 %; Hematocrit (blood only) 42.3 % (42.0-52.0); Hemoglobin 14.1 g/dl (14.0-18.0); Immature Granulocytes # (auto) 0.04 K/uL (0.01-0.20); Immature Granulocytes % (auto) 0.5 %; Lymphocytes # (auto) 2.89 K/uL (1.20-3.40); Lymphocytes % (auto) 38.2 %; Mean Corpuscular Hemoglobin 31.8 pg (25.0-34.0); Mean Corpuscular Hgb Conc 33.3 g/dL (32.0-36.0); Mean Corpuscular Volume 95.5 fL (80.0-100.0); Mean Platelet Volume 9.2 fL (9.4-12.4); Monocytes # (auto) 0.71 K/uL (0.11-0.59); Monocytes % (auto) 9.4 %; Neutrophils # (auto) 3.74 K/uL (1.40-6.50); Neutrophils % (auto) 49.5 %; Platelet Count 243 K/uL (130-400); RDW Coefficient of Variation 12.9 % (11.5-14.5); RDW Standard Deviation 45.1 fL (36.4-46.3); Red Blood Count 4.43 M/uL (4.70-6.10); White Blood Count 7.56 K/ul (4.8-10.8)
[2023-12-04 02:31] LABS: BUN Creatinine Ratio 21.4 (10-20); Calcium 9.1 mg/dl (8.6-10.3); Creatinine Clr Calc Pharmacy 135.6 ml/min; Est GFR (African American) 112.7 ml/min; Est GFR (Non-African American) 97.2 ml/min; Potassium 3.8 mmol/L (3.5-5.1)
[2023-12-04 03:34] LABS: ANTI-Xa, UFH(UnfractionatedHep 1.22 IU/ml (0.3-0.7)
[2023-12-04 05:50] LABS: ANTI-Xa, UFH(UnfractionatedHep 0.77 IU/ml (0.3-0.7)
--- OUTSIDE RECORDS SUMMARY | 2023-12-04 05:58 | External Medical Summary | Continuity of Care Document ---
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 Data : BP readings reviewed. Goal : maintain normal BP. Plan : continue current BP med. We discussed that evenlabile HTNcouldbe anindicationtoaddmedsontowhathe is alreadytaking.However,hefeelsthathisBPisgoodoutside ofmedicalsettings,so is hesitant todo this.Hewillsend in homeBPlogs, sothyamilexwe can decide.Had normalelectrolytes & renal function in 06/20. 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 DATA: hx reviewed. GOAL: avoidrecurrentclots. PLAN: he wasadvisedby heme to be onanti-coagulantslifelong, butcould decreaseto prophylacticdose. 3.ZACKARY (obstructive sleep apnea) STATUS: Chronic, improved. DATA: hxreviewed. GOAL: Maintain nocturnal oxygenation, improve energy. PLAN: discussed nature of sleep apnea. ContinueCPAP. 4.Asthma, mild intermittent STATUS: Chronic, improved. DATA: hx & examreviewed. GOAL: control allergic sx.Maintain respiratory stability. PLAN: continue OTC nasal steroid spray. 5.Elevated liver enzymes STATUS: Chronic, improved. DATA: Labs reviewed. GOAL: Maintain hepatic stability. PLAN: last labs show LFT's improved. Keep up good work with diet & weight loss. Return in6 months. Time:Total time spent with this patient on day of evaluation including chart review, ordering, education and coordination of care elements: 32_ minutes Immunizations Given and Recorded Vaccine Date Status Refusal Reason influenza virus vaccine, inactivated 03/23/20 Give n influenza virus vaccine, inactivated 02/28/19 Give n influenza virus vaccine, inactivated 03/06/18 Give n influenza virus vaccine, inactivated 1 03/25/15 Re corded tetanus/diphtheria/pertuss, acel (Tdap) 09/13/17 G iven hepatitis B adult vaccine 2 07/27/16 Recorded hepatitis B adult vaccine 3 01/18/16 Recorded hepatitis B adult vaccine 4 11/09/15 Recorded 1Result Comment: 2017-09-13: Historical information-source unspecified 2Result Comment: 2017-09-13: Historical information-source unspecified 3Result Comment: 2017-09-13: Historical information-source unspecified 4Result Comment: 2017-09-13: Historical information-source unspecified Medications azelastine 137 mcg/inh (0.1%) nasal spray Start: 12/13/20 4:30:00 PM EDT, 2 spray, each nostril, bid, Disp# 1 each, Refills: 11, PRN: as needed for allergy symptoms, Pharmacy: [facility] Start Date: 12/13/20 Stop Date: 12/08/21 Status: Ordered Flonase 50 mcg/inh nasal spray Start: 11/08/21 2:51:00 PM EDT, 2 spray, each nostril, bid, Disp# 16 g, Refills: 3, Pharmacy: [facility] Start Date: 11/08/21 Stop Date: 03/08/22 Status: Ordered lisinopril 20 mg oral tablet Start: 08/17/23 10:11:00 AM EDT, 1 tab, PO, Daily, Disp# 90 tab, Refills: 3, Pharmacy: [facility] [id number] Start Date: 08/17/23 Status: Ordered traMADol 50 mg oral tablet Start: 11/02/23 8:28:00 AM EDT, 1 tab, PO, q8h, Disp# 30 tab, Refills: 0, PRN: as needed for pain, Pharmacy: [id number] Start Date: 11/02/23 Status: Ordered triamcinolone 0.1% topical cream Start: 04/28/21 1:25:00 PM EST, 1 appl, topical, bid, Disp# 454 g, Refills: 0, to back, chest, feet,arms, hands, Pharmacy: [id number] Start Date: 04/28/21 Status: Ordered Ventolin HFA 90 mcg/inh inhalation aerosol Start: 12/14/22 10:44:00 AM EDT, 2 puff, inhaled, qid, Disp# 1 each, Refills: 0, Note to Pharmacy: okay to switch to proair or proventil HFA if cheaper for patient, PRN: as needed for wheezing, Pharmacy: [id number] Start Date: 12/14/22 Stop Date: 01/13/23 Status: Ordered Xarelto 20 mg oral tablet Start: 02/19/23 8:00:00 AM EDT, See Instructions, Disp# 30 tab, Refills: 5, TAKE 1 TABLET BY MOUTH EVERY DAY IN THE EVENING, Pharmacy: [facility] [id number] Start Date: 02/19/23 Status: Ordered Mental Status 11/02/23 Barriers to Learning one year None evide nt Mandatory Health Literacy Documentation Yes Health Literacy Communication Barriers N ever Primary Language Senegalese Problem List Condition Confirmation Course Effective Dates Status H ealth Status Informant Acute bilateral low back pain Confirmed Active Acute pulmonary embolus Confirmed Active Benign essential HTN Confirmed Active Cellulitis of right lower extremity Confirmed Active Family history of skin cancer 1 Confirmed Active Tear of rotator cuff Confirmed Active Heterozygous for prothrombin [id number] mutation Confirmed Active Hyperhidrosis Confirmed Active Elevated liver enzymes Confirmed Active Asthma, mild intermittent Confirmed Active Cervicalgia Confirmed Active ZACKARY (obstructive sleep apnea) Confirmed Active Numbness and tingling of both legs Confirmed Active Annual physical exam Confirmed Active Phlebitis of leg, right, superficial Confirmed Active Plantar fasciitis of left foot Confirmed Active Tarsal tunnel syndrome, bilateral lower limbs Confirmed Active Tick bite of right lower leg Confirmed Active Tobacco user Confirmed Active Wart Confirmed Active 1mother had skin ca ? Diagnosis Diagnosis Type Effective Dates Health Status Clinical Service Informant Elevated liver enzymes Discharge Diagnosis 11/01/23 Non-Specified Heterozygous for prothrombin [id number] mutation Discharge Diagnosis 11/01/23 Non-Specified Benign essential HTN Discharge Diagnosis 11/01/23 Non-Specified Asthma, mild intermittent Discharge Diagnosis 11/01/23 Non-Specified ZACKARY (obstructive sleep apnea) Discharge Diagnosis 11/01/23 Non-Specified Procedures Procedure Date Related Diagnosis Body Site Status Rotator cuff repair 1 08/14/22 Com pleted Shave biopsy and cauterizati on of skin 2 12/23/21 Completed Lumbar epidural steroid injection 3 09/15/21 Completed MRI of spine 4 06/18/21 Completed EMG - Electromyography 5 05/25/21 Completed Shave biopsy 6 04/28/21 Completed X-ray of lumbar and sacral spine 7 04/28/21 Completed Lumbar epidural injection 8 12/28/20 Completed Lumbar epidural steroid injection 9 11/17/20 Completed Plain X-ray of lumbar spine 10 11/08/20 Completed Chest x-ray 11 05/08/18 Completed EMG - Electromyography 12 11/06/17 Completed Polysomnograph 13 11/04/17 Complet ed Colonoscopy 14, 15 10/02/17 Comple claudia Arthroscopy 16 Completed [facility], rotator cuff repair, biceps tenotomy, subacromial decompression, debridement of SLAP (superior labrum anterior and posterior) tear 2w/ ED&C 3UOC 4UOC Spinal stenosis of lumbar region 5[facility] Impression: 1. Remarkable for a moderate polyneuropathy involving sensory greater than gilles fibers of mixed pathology. In addition, a very mild old right S1 radiculopathy is present. No other abnormalities 6right flank 7[facility] Impression: 1. Demonstrates previous instrumentation L4-L5 with interbody construct. L5-S1 has evidence of discbase collapse with vacuum phenomenon 8Lumbra Transforaminal Epidral Steroid Injection 9[facility] L5 10[facility] Impression: 1. Instrumented fusion L4/5. Heigh loss L3/4 with mild retrolisthesis 11[facility] Impression: 1. [facility] Impression: 1. Abnormal study 2. NCS with prolongation and conduction block of the bilateral tibial nerves 3. EMG with reducted MEGAN MUAP's 13[facility] Impression: 1. Severe ZACKARY with frequent hypopneas and apneas 142 polyps 15next c-scope in 10 yrs (10/22) 16right shoulder Vital Signs Most recent to oldest [Reference Range]: 1 Patient Weight 124.9 kg (11/02/23 7:56 AM) Temperature [36.5-37.9 DegC] 36.8 DegC (11/02/23 7:56 AM) Heart Rate 96 bpm (11/02/23 7:56 AM) Respiratory Rate 20 br/min (11/02/23 7:56 AM) Blood Pressure 162/102mmHg (11/02/23 7:56 AM) Cuff Pulse Pressure 60 mmHg (11/02/23 7:56 AM) BP Location # 1 Left Arm, Manual (11/02/23 7:56 AM) Social History Social History Type Response Tobacco Former smoker, Oral, 20 per day. 30 year(s). Total pack years: 30. Stopped age 50 Years. 1 Smoking Status Never smoked cigaret armaan Sex Male 1Chews 1 can of snuff a week x 21 years old FCM Outpt Note * MD Azam, Karina Lopez: PERFORM Event Display: FCM Outpt Note Authored Date: [id number] Chief Complaint 6 month follow-up History of Present Illness * This patient is being followed longitudinally for chronic serious medical problems by Dr. Karina Nascimento. Their most recent visitwith Dr. Nascimento:05/02/23. Here for recheckoffollowing concerns : 1) HTN - he knows that his BP is high, as it always high at doctor's offices. However, at one of his neurosurgical visits, they told him that it was really good. When he comes home from work, itsalways in 120/70 range. 2) Backpain- heis Lolitawith [facility].Toldhe has bulgingdiscofL5-S1. He is trying todo injections, but is talking to them aboutsurgery. He needs Tramadol sporadically, maybe a few times everycouple of weeks. 3)Hx ofPE - he saw heme, who told him that he could take the prophylactic dose of blood-thinner. 4)ZACKARY- he did finally get his new CPAP machine & does feel that it is helping. However, his tells him that he still snores. 5) Asthma - he feels that his breathing is under good control. Review of Systems Review of Systems- Constitutional: no fatigue or changes in weight. HEENT: no vision changes, or sinus congestion. Respiratory: no cough, SOB, or wheezing. Cardiac: no chest pain, palpitations or pedal edema. GI: no abdominal painor change in bowel habits. : no dysuria. Neurologic: no headaches. Musculoskeletal: + backpains. Physical Exam Vitals & Measurements T:36.8C HR:96(Monitored) RR:20 BP:162/102 SpO2:98% WT:124.900kg(Dosing) WT:124.9kg PHQ2 Data(Data Documented on:11/02/2023 07:56) Emotional health assessment NEGATIVE PE : Alert, in NAD. HEENT - PERRL. Nares - clear. Oropharynx - normal. Neck - supple, without thyromegaly or lymphadenopathy. Lungs - clear, with good breath sounds bilaterally. Heart - RRR without murmur. No pedal edema. Abdomen - +BS, soft, NT without HSM or mass. Neuro - alert & oriented, speech & cognition normal. Skin - warm & dry. Psych - affect appropriate. Assessment/Plan 1.Benign essential HTN Status : chronic, level ofcontrol variable. Data : BP readings reviewed. Goal : maintain normal BP. Plan : continue current BP med. We discussed that evenlabile HTNcouldbe anindicationtoaddmedsontowhathe is alreadytaking.However,hefeelsthathisBPisgoodoutside ofmedicalsettings,so is hesitant todo this.Hewillsend in homeBPlogs, marcelino can decide.Had normalelectrolytes & renal function in 06/20. 2.Heterozygous for prothrombin [id number] mutation STATUS: Chronic stable. DATA: hx reviewed. GOAL: avoidrecurrentclots. PLAN: he wasadvisedby heme to be onanti-coagulantslifelong, butcould decreaseto prophylacticdose. 3.ZACKARY (obstructive sleep apnea) STATUS: Chronic, improved. DATA: hxreviewed. GOAL: Maintain nocturnal oxygenation, improve energy. PLAN: discussed nature of sleep apnea. ContinueCPAP. 4.Asthma, mild intermittent STATUS: Chronic, improved. DATA: hx & examreviewed. GOAL: control allergic sx.Maintain respiratory stability. PLAN: continue OTC nasal steroid spray. 5.Elevated liver enzymes STATUS: Chronic, improved. DATA: Labs reviewed. GOAL: Maintain hepatic stability. PLAN: last labs show LFT's improved. Keep up good work with diet & weight loss. Return in6 months. Time:Total time spent with this patient on day of evaluation including chart review, ordering, education and coordination of care elements: 32_ minutes Problem List/Past Medical History Ongoing Acute bilateral low back pain Acute pulmonary embolus Annual physical exam Asthma, mild intermittent Benign essential HTN Cellulitis of right lower extremity Cervicalgia Elevated liver enzymes Family history of skin cancer Heterozygous for prothrombin [id number] mutation Hyperhidrosis Numbness and tingling of both legs ZACKARY (obstructive sleep apnea) Phlebitis of leg, right, superficial Plantar fasciitis of left foot Tarsal tunnel syndrome, bilateral lower limbs Tear of rotator cuff Tick bite of right lower leg Tobacco user Wart Procedure/Surgical History Rotator cuff repair| Service Date: 08/14/2022Shave biopsy and cauterization of skin| Service Date: 12/23/2021Lumbar epidural steroid injection| Service Date: 09/15/2021MRI of spine| Service Date: 06/18/2021EMG - Electromyography| Service Date: 05/25/2021X-ray of lumbar and sacral spine| Service Date: 04/28/2021have biopsy| Service Date: 04/28/2021umbar epidural injection| Service Date: 12/28/2020umbar epidural steroid injection| Service Date: 11/17/2020lain X-ray of lumbar spine| Service Date: 11/08/2020hest x-ray| Service Date: 05/08/2018EMG - Electromyography| Service Date: 11/06/2017Polysomnograph| Service Date: 11/04/2017Colonoscopy| Service Date: 10/02/2017Spinal fusionArthroscopy Medications albuterol(Ventolin HFA 90 mcg/inh inhalation aerosol), 2 puff, inhaled, qid, PRN azelastine nasal(azelastine 137 mcg/inh (0.1%) nasal spray), 2 spray, each nostril, bid, PRN, 11 refills fluticasone nasal(Flonase 50 mcg/inh nasal spray), 2 spray, each nostril, bid, 3 refills lisinopril(lisinopril 20 mg oral tablet), 1 tab, PO, Daily rivaroxaban(Xarelto 20 mg oral tablet), See Instructions traMADol(traMADol 50 mg oral tablet), 50 mg= 1 tab, PO, q8h, PRN triamcinolone topical(triamcinolone 0.1% topical cream), 1 appl, topical, bid Allergies ClamsNausea Social History Smoking Status Never smoked cigarettes Alcohol Use:Current Type:Beer Frequency:Daily Average drinks per episode in last year:2 Employment/School Status:Employed 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 Wears seatbelt. He does use sun screen, but not consistently Nutrition/Health Type of diet:Regular Caffeine intake amount:Drinks 20 oz cup of coffee or tea daily Other Details:Has not had a blood transfusion. Has tattoos that were done w/ professional and sterile equipment. Has not been incarcerated. Has donated blood, but before 1989 Sexual Sexually active:Yes Current partners:1 Self described orientation:Heterosexual Substance Abuse - Denies Substance Abuse Tobacco Use:Former smoker Type:Oral Tobacco use per day:20 Number of years:30 Total pack years:30 Stopped at age:50Years - Comments: Chews 1 can of snuff a week x 21 years old Family History Malignant tumor of lung: PGF. Pancreatic cancer......: Father. Skin cancer: Mother. Type II diabetes mellitus: Mother. Health Status Family Member(s) Sister: History is negative Brother: History is negative Sister: History is negative Brother: History is negative Brother: History is negative Family Member(s) Relationship: Father, Age: 79 Years, Cause: pancreatic Immunizations Vaccine Date Status influenza virus vaccine, inactivated 03/23/2020 Given influenza virus vaccine, inactivated 02/28/2019 Given influenza virus vaccine, inactivated 03/06/2018 Given tetanus/diphtheria/pertuss, acel (Tdap) 09/13/2017 Given hepatitis B adult vaccine 07/27/2016 Recorded Comments : 2017-09-13: Historical information-source unspecified hepatitis B adult vaccine 01/18/2016 Recorded Comments : 2017-09-13: Historical information-source unspecified hepatitis B adult vaccine 11/09/2015 Recorded Comments : 2017-09-13: Historical information-source unspecified influenza virus vaccine, inactivated 03/25/2015 Recorded Comments : 2017-09-13: Historical information-source unspecified Recommendations Health Maintenance Pending(in the next year) OverDue Adult Influenza Vaccine due11/24/22and every 1year Due Adult COVID-19 Vaccination due11/02/23Unknown Frequency Adult Social Determinants of Health Screening due11/02/23Unknown Frequency Pneumococcal Vaccine Adults and Adolescents with Chronic Illness due11/02/23One-time only Shingles Vaccine due11/02/23One-time only Satisfied(in the past 1 year) Satisfied Body Mass Index on05/02/23.Satisfied by DORY Avalos Karli R Lipid Screening on06/26/23.Satisfied by Contributor_system, [email or web address] Electronic Signature on File Electronically Reviewed/Signed by: Karina Nascimento MD Author Signature Dt/Tm:11/02/2023 08:59 AM [facility] [address] [place] [address] [address] [facility] Patient Care team information Care Team Personnel Name: MD Azam, Karina Lopez Position: Physician - Family Med Member Role: Primary Care Provider Address: Address: [address] [place] [id number] Care Team Related Persons Name: EVERETT PALOMINO Address: home [address] [id number] Name: EVERETT PALOMINO Address: [facility] [place] Address: home [address] [place] [id number]"
[2023-12-04 07:02] LABS: ANTI-Xa, UFH(UnfractionatedHep 0.55 IU/ml (0.3-0.7)
[2023-12-04] MEDS: lisinopril 20 MG TAB PO SCH (07:31)
[2023-12-04 07:32] LABS: ANTI-Xa, UFH(UnfractionatedHep 0.44 IU/ml (0.3-0.7)
[2023-12-04] MEDS: Heparin IV Adult Wt-Based Standard *NO* INITIAL Bolus Protocol IV STA (07:32)
[2023-12-04] MEDS: RIVAROXABAN 15 MG TAB PO SCH (09:45)
--- NOTE | 2023-12-04 11:09 | Discharge Summary ---
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 Squeezing pain in his chest with radiation into the neck and presented to the ER for reevaluation. D-dimer elevated, CTA shows interval development of acute right upper and middle lobe segmental/subsegmental PEs. No evidence of right heart strain, no recurrent saddle PE. High- sensitivity troponin is not elevated, and EKG is without acute ischemic change. Patient reports he has been taking his Xarelto, then notes he missed two doses. Dr. Maurer reduced him from 20mg daily to 10mg per day, but patient decided to take 20mg every other day instead over the past week. Likely w/ subtherapeutic levels. Prior DVT/PE was post shoulder surgery, no recent travel/trauma/injury this time. Has had R leg pain in the last week. Hadn't yet gotten to fill the 10mg script, so had been alternating for ~4 months. He reports he does not want to change blood thinners and does not want to take warfarin if at all possible. Started on the Xarelto, was not on eliquis. Has never been on other blood thinners. PE last year, and now. No other hx of clots. Has prothombin gene mutation. Took 20mg this morning of Xarelto ~6:30am. He is not short of breath now, but would be fatigued if he tried to walk. No chest pain at time of bedside assessment. Was driving with 3hours per day, in 1.5 hours each last week just prior to his leg pain starting. Medical History: Reviewed Medications: Reviewed Surgical History: Reviewed Family history: Reviewed Allergies: Reviewed Social History: Chews snuff. 1 can per week. ETOH 4-5 intermittently on weekends. Code Status: Full Code Principal Diagnosis right DVT, right PE Discharge Exam Constitutional WD/WN, vitals as above Eyes PERRL, conjunctivae normal, anicteric sclerae Respiratory normal respiratory effort, lungs clear to auscultation Cardiovascular RRR, no murmur, no edema Skin no rashes, warm and dry Psychiatric A+Ox3, euthymic affect Discharge Data Allergies Allergy/AdvReac Type Severity Reaction Status Date / Time clams Allergy Severe Vomiting Verified 09/27/22 14:33 Consultations 12/03/23 19:58 ED Decision to Admit Stat Ordered Studies Chest X-Ray 12/03/23 14:53 IMPRESSION: Cardiomegaly with no acute cardiopulmonary abnormality identified. Electronically signed by: Mode Diaz M.D. 12/03/2023 3:55 PM Chest CTA 12/03/23 16:56 IMPRESSION: 1. Interval development of acute right upper and middle lobe segmental/subsegmental pulmonary emboli as described above. 2. Additional scattered chronic nonocclusive pulmonary emboli remain stable. 3. No evidence for right-sided heart strain. 4. No focal lung consolidations. Electronically signed by: Wilmer Ivy M.D. 12/03/2023 6:02 PM Venous Doppler Study 12/03/23 19:08 IMPRESSION: 1. Nonocclusive thrombus in the proximal/mid superficial femoral vein. 2. Chronic-appearing thrombus in the popliteal vein. Electronically signed by: Olu Gates MD 12/03/23 23:58 PM 12/04/23 02:01 12/04/23 02:01 Vital Signs Temp 36.4 C L 12/04/23 07:48 Pulse 58 L 12/04/23 07:48 Resp 16 12/04/23 11:17 BP 133/83 12/04/23 11:17 Pulse Ox 98 12/04/23 11:17 O2 Del Method Room Air 12/04/23 08:10 Hospital Course (1) Deep vein thrombosis of right lower extremity: Patient has had about 1 week history of 3 hours of daily care travel with development of right proximal thigh pain followed by SOB on 12/02. He then presented to the ED. Patient was taking Xarelto every other day outpatient as he has history of PE's in past due to prothrombin [id number] mutation. Case was discussed with hematology and this was not medication failure but noncompliance. The DVT was likely due to subtherapeutic Xarelto along with extended car travel. He was given heparin drip and transitioned to PO Xarelto 15mg in AM of 12/03. Labs were stable on 12/03. At time of exam, patient had no complaints. He denied chest pain, shortness of breath, and leg pain. He felt he was okay to go home. He is to take Xarelto 15mg PO BID x 21 days and then transition to daily dosing. He will follow up with hematology and his PCP. He was given a work excuse until 12/10/2023. (2) Prothrombin [id number] mutation: Plan As above Plan He was continued on Lisinopril for hypertension and used CPAP nightly for ZACKARY. Total Time Total Time Spent Total Time Spent (In Minutes): 35 Total Time Includes: Examination of the Patient, Discharge Planning and Medication Reconciliation Discharge Plan Discharge Items Patient Disposition: Home - Self-Care Reason For Visit: RECURRENT PE Discharge Diagnosis: Right pulmonary embolism, Right DVT Activity: Resume your previous activity Non-emergency contact: Primary Care Provider Call non-emergency contact if: you have any medication questions and your symptoms worsen Follow-up/Referrals: Karina Nascimento MD [Primary Care Provider] - 12/05/23 3:50 pm Diet: Regular Addtl Attending Provider Instructions: Mr. Schultz, You were hospitalized following the findings of a right pulmonary emboli and right DVT. You were given heparin overnight and transition to Xarelto this morning. Please see recommendations below regarding your discharge. 1. Please take Xarelto 15mg twice daily for the next 21 days. Following the 21 days, this will be transitioned to once daily dosing which can be discussed with your orthotic aide or PCP. -Your next dose will be this evening 12/03. 2. Please continue Lisinopril for your high blood pressure. 3. The hematology office will be in contact with you for a follow up with them. 4. Please follow up with your PCP in the next 1-2 weeks. If you develop any worsening of your symptoms including leg pain, chest pain, shortness of breath please report back to the ED. Sincerely, Sonja Munguia PA-C Pending Studies at Discharge: No Stand-Alone Forms: [employer] [place], Work/School Release, Smoking Cessation Medications and DC Order Prescriptions: New Xarelto 15 mg tablet 15 mg PO BID 21 Days Qty: 42 0RF Rx Instructions: must administer with a meal/food Continued albuterol sulfate [Ventolin HFA] 90 mcg/actuation HFA aerosol inhaler 2 puff inhalation Q6H PRN (Reason: Shortness Of Breath Or Wheezing) azelastine 137 mcg (0.1 %) aerosol,spray 2 spray intranasal BID PRN (Reason: Allergy Symptoms) Rx Instructions: administer into each nostril gabapentin 100 mg capsule 100 mg PO DAILY PRN (Reason: Pain) lisinopril 20 mg tablet 20 mg PO DAILY multivitamin Tablet 1 tab PO QAM fluticasone propionate 50 mcg/actuation [place],Suspension 1 spray INTRANASAL BID PRN (Reason: Allergy Symptoms) Rx Instructions: administer into each nostril tramadol 50 mg tablet 50 mg PO Q8H PRN (Reason: Pain) Discontinued Xarelto 10 mg tablet 10 mg PO DAILY Discharge Orders: Discharge Order (Routine); Ordered 12/04/23 Ordered By: Sonja Munguia Admission Data Admit Date/Time: 12/03/23 20:36 Attending Provider: Jay Reagan Admit Provider: Hussain Robert Primary Care Provider: Karina Nascimento Other Providers: Hussain Robert Other Interventions: Discharge Summary Assessment (RN) Last Done: 12/04/23 11:17 Coding Level of Care Code 09496 INP/OBS DISCH >30 MIN Diagnoses Deep vein thrombosis of right lower extremity I82.401 Prothrombin [id number] mutation D68.52
== END 2023-12-04 12:44 | disposition home or self-care (01) | DRG 176 ==
LOC: ED 14:44 → 3N 14:44 → SUATTDRO 20:36